=== PATIENT | male | born 1945 | race Caucasian/White ===

== ENCOUNTER 2025-05-17 12:48 | Outpatient (AMB) | payer MEDICARE, OTHER, SELFPAY ==
[2025-05-17 12:49] VITALS: BP 128/58; PULSE 49; O2SAT 96; BMI 26.8
--- NOTE | 2025-05-17 12:49 | A.OFFVIS_ITS ---
Vital Signs 3 05/17/25 12:49 Height 5 ft 5 in Weight 160 lb 14.999 oz BMI 26.8 BP 128/58 L Blood Pressure Location Rt brachial Position Sitting Pulse 49 L Pulse Source Pulse Oximeter Pulse Oximetry (%) 96 Oxygen Delivery Method Room Air Intake Visit Reasons: NEW Pt DMT2 & Multinodular Goider Intake Note: New patient present today for Type 2 Diabetes Mellitus and Multinodular Goiter: Last Diabetic eye exam: 02/2025 Last Podiatry Visit: 04/2025 Most Recent HgA1C: 6.6%, 05/17/2025 Random Glucose: 192 mg/dL, Today L Precision Instrument Maker Required: No Accompanied by: Significant Other Dona Allergies No Known Allergies Allergy (Verified 05/17/25 12:53) Medication List - Last Reconciled 05/17/25 by Brianna Bustamante MD albuterol sulfate 90 mcg/actuation 1 puff inhalation Q4H PRN aspirin 81 mg PO DAILY atorvastatin 40 mg PO DAILY blood sugar diagnostic (Accu-Chek Tara Plus test strips) As directed blood-glucose sensor (FreeStyle Opal 3 Plus Sensor device) As directed blood-glucose,aging box hand,cont (FreeStyle Opal 3 Palco) As directed carvedilol 12.5 mg PO BID fluticasone propionate 50 mcg/actuation 1 spray intranasal DAILY hydralazine 25 mg PO TID hydralazine 25 mg PO TID insulin glargine (Lantus Solostar U-100 Insulin) 26 units subcut insulin lispro (Humalog KwikPen (U-100) Insulin) subcutaneously 3 times a day; 80-120= 12 units 151-200=14 units 201- 250= 16 units 251-300= 18 units 301-350= 20 units isosorbide mononitrate ER 120 mg PO DAILY lancets (Accu-Chek Softclix Lancets) As directed torsemide 20 mg PO BID HPI Comments Details: 79-year-old male here today to establish care for type 2 diabetes mellitus and multinodular thyroid. Was previously following with the [facility], now establishing care with us. Was seeing Dr. Jose there who is retired , also due to insurance issues. Type 2 diabetes mellitus History of diabetes Was diagnosed in his 40s Prior therapy: metformin , switched to insulin in his 40s after CABG Current regimen: Lantus 26 units daily at night Humalog subcutaneously 3 times a day takes it 10 mins before meals 80-120= 12 units 151-200=14 units 201- 250= 16 units 251-300= 18 units 301-350= 20 units mostly requiring 12 to 14 units HAs freeZoonayle opal 3 but forgot to bring phone to visit Has accucheck meter , strips and lancets at home for back up Denies any symptoms of hyperglycemia including polyphagia, polyuria, polydipsia. Denies any hypoglycemic symptoms. 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 Multinodular goiter Ultrasound thyroid dated July 2024 showed a right lower pole 1.6 cm TR 4 solid hypoechoic with possible macrocalcification nodule which is new per chart review. Another right lower pole nodule abutting the isthmus measuring 1.4 cm in the largest dimension TR 3, also new, this is mixed cystic solid. Another mid to upper pole nodule abutting the isthmus measuring 1.4 cm TR 3 which is stable from previous ultrasound per report. In the left lobe left midpole 1.8 cm mixed cystic solid, hypoechoic, with macrocalcification TR 4 nodule and an inferior left isthmic nodule measuring 2.2 cm TR 4, mixed cystic solid, with a lobulated margin unchanged in size. Apparently he had biopsy in July 2019 of the isthmus and left lobe nodule which were benign. January 2024 she also had a biopsy of an isthmus nodule , per patient this was nondiagnostic No compressive symptoms. No recent TFTs. No family history of thyroid cancer. No personal history of head or neck radiation. Physical exam General: sitting comfortably in no acute distress HEENT: normocephalic/atraumatic, Neck: supple, Cardiac: normal heart sounds Pulm: normal breath sounds B/L, no added breath sounds Abd: not distended, no tenderness Extremities: no edema, no signs of myxedema Neuro: AAO x3, Speech: normal, no facial droop, moving all 4 extremities [facility] Medical History (Updated 05/17/25 @ 13:43 by Brianna Bustamante MD) Type 2 diabetes mellitus Asymptomatic coronary heart disease Edema Hyperthyroidism Thyroid nodule long term care social worker (current) use of insulin Pure hypercholesterolemia, unspecified Essential (primary) hypertension 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 Mother No problems noted. Social History Household Members: Spouse Alcohol intake: current Alcohol intake frequency: does not drink Patient Tobacco Use Status: Never used Tobacco Physical Exam Vital Signs: Last Vital Signs Pulse 49 L 05/17/25 12:49 BP 128/58 L 05/17/25 12:49 Pulse Ox 96 05/17/25 12:49 Oxygen Delivery Method Room Air 05/17/25 12:49 BMI result Body Mass Index 26.8 Results AMB Hemoglobin A1c 2 AMB Hemoglobin A1c 6.6 % Last Edit by JEF Richey on 05/17/25 13:10 Results Reviewed Results Reviewed: Laboratory Last Values Glucose (Clinic) 196 mg/dL (60-115) H 05/17/25 13:01 Hgb A1c (Clinic) 6.6 % (4.0-6.0) H 05/17/25 13:06 Assessment & Plan Assessment & Plan (1) Type 2 diabetes mellitus: Code(s): E11.9 - Type 2 diabetes mellitus without complications Category: Medical Qualifiers: Diabetes mellitus complication status: with circulatory complication D iabetes mellitus fci insulin use: with fci use Diabetes mellitus complication detail: with other circulatory complications Qualified Code(s): E 11.59 - Type 2 diabetes mellitus with other circulatory complications; Z79.4 - long term care social worker (current) use of insulin Plan: 79-year-old male coming in today for initial evaluation of type 2 diabetes mellitus with complications of retinopathy, CAD. He was diagnosed with diabetes in his 40s, establishing care with us today. Currently on long-term insulin with a basal bolus regimen. He has tried metformin in the past, looks like it was just discontinued due to poor control, he has never been on any GLP 1 agonist or SGLT2 inhibitors. A1c POC today 05/17/2025 at 6.6% which is within goal A1c of less than 7%. He is wearing a Gamisfaction Opal 3, however he forgot to bring his phone today showed no data could be downloaded. Reports blood sugars are mostly in the 100s and max 200s, however he also has a few hypoglycemic episodes here and there. No severe hypoglycemic event. Hypoglycemia education done. We also reviewed complications of hyperglycemia. Plan: -continue current dose of Lantus 26 units daily -continue current HumalogHumalog subcutaneously 3 times a day , take it 15 mins before meals 80-120= 12 units 151-200=14 units 201- 250= 16 units 251-300= 18 units 301-350= 20 units -upgrade to freestyle Opal 3+, clinical staff educator referral placed -foot exam deferred today , he had his feet last checked in April 2025 by PCP -ordered labs -has a retinopathy, up-to-date with eye visit, last seen February 2025 (2) Nontoxic multinodular goiter: Code(s): E04.2 - Nontoxic multinodular goiter Category: Medical Plan: 79-year-old male with no family history of thyroid cancer, with no personal history of head or neck radiation, who also has History of multinodular goiter Ultrasound thyroid dated July 2024 showed a right lower pole 1.6 cm TR 4 solid hypoechoic with possible macrocalcification nodule which is new per chart review. Another right lower pole nodule abutting the isthmus measuring 1.4 cm in the largest dimension TR 3, also new, this is mixed cystic solid. Another mid to upper pole nodule abutting the isthmus measuring 1.4 cm TR 3 which is stable from previous ultrasound per report. In the left lobe left midpole 1.8 cm mixed cystic solid, hypoechoic, with macrocalcification TR 4 nodule and an inferior left isthmic nodule measuring 2.2 cm TR 4, mixed cystic solid, with a lobulated margin unchanged in size. Apparently he had biopsy in July 2019 of the isthmus and left lobe nodule which were benign. January 2024 she also had a biopsy of an isthmus nodule , per patient this was nondiagnostic No compressive symptoms. No recent TFTs. Plan: -ordered TSH plus free T4 -ordered ultrasound of the thyroid -follow up in 5-6 weeks to discuss results Plan I spent 60 minutes in reviewing the record, seeing the patient and documenting in the medical record. Orders: Orders 2 US thyroid Today E04.2 - Nontoxic multinodular goiter Free T4 (Free Thyroxine) Today E04.2 - Nontoxic multinodular goiter AMB Hemoglobin A1c Today Z86.39 - Personal history of other endocrine, nutritional and metabolic disease Comprehensive Met. Panel Today E11.59 - Type 2 diabetes mellitus with other circulatory complications, Z79.4 - penitentiary (current) use of insulin C Peptide Today E11.59 - Type 2 diabetes mellitus with other circulatory complications, Z79.4 - long term care social worker (current) use of insulin Lipid Panel Today E11.59 - Type 2 diabetes mellitus with other circulatory complications, Z79.4 - long term care social worker (current) use of insulin Microalbumin, Random (w Creat) Today E11.59 - Type 2 diabetes mellitus with other circulatory complications, Z79.4 - long term care social worker (current) use of insulin Thyroid Stimulating Hormone Today E04.2 - Nontoxic multinodular goiter Referrals 2 Diabetes Education Referral E11.59 - Type 2 diabetes mellitus with other circulatory complications, Z79.4 - penitentiary (current) use of insulin Medications: New 2 insulin glargine (Lantus Solostar U-100 Insulin) 26 units (0.26 mL) subcut BEDTIME 30 mL 2RF E11.59 - Type 2 diabetes mellitus with other circulatory complications, Z79.4 - penitentiary (current) use of insulin insulin lispro (Humalog KwikPen (U-100) Insulin) subcutaneously 3 times a day before meals ; 80-120= 12 units 151-200=14 units 201- 250= 16 units 251-300= 18 units 301-350= 20 units upto max 60 units per day 30 mL 2RF E11.59 - Type 2 diabetes mellitus with other circulatory complications, Z79.4 - penitentiary (current) use of insulin pen needle, diabetic (1st Tier Unifine Pentips) As directed to inject insulin 4 times a day 100 ea 4RF E11.59 - Type 2 diabetes mellitus with other circulatory complications, Z79.4 - long term care social worker (current) use of insulin blood-glucose sensor (FreeStyle Opal 3 Plus Sensor device) As directed every 15 days 6 ea 3RF E11.59 - Type 2 diabetes mellitus with other circulatory complications, Z79.4 - long term care social worker (current) use of insulin Patient Instructions: DO fasting blood work and urine test Continue current dose of insulin as mentioned below Lantus 26 units daily at night Humalog subcutaneously 3 times a day , take it 15 mins before meals 80-120= 12 units 151-200=14 units 201- 250= 16 units 251-300= 18 units 301-350= 20 units Rule of 15 Treatment for Hypoglycemia (Low blood sugar) If your blood glucose is low (70 and below)*, follow the steps below to treat: Eat or drink something from the list below equal to 15 grams of carbohydrate (carb). Rest for 15 minutes Re-check your blood glucose. If it is still low, (below 70), repeat step 1 above. ? If your next meal is more than an hour away, you will need to eat one carbohydrate choice as a snack to keep your blood glucose from going low again. ?If you can't figure out why you have low blood glucose, call your healthcare provider, as your medicine may need to be adjusted. ?Always carry something with you to treat an insulin reaction. Use food from the list below. ? Foods equal to One Carbohydrate Choice (15 grams of carbohydrate): 3 Glucose ?tablets or 4 Dextrose tablets 4 ounces of fruit juice 5-6 ounces (about 1/2 can) of regular soda such as Coke or Pepsi ? 7-8 gummy or regular Life Savers ? 1 Tbsp. of sugar or jelly NOTE: If your blood sugar is less than 50, double the portion above for a total of 30 gm. ?Carbohydrate. ? Follow meal plan of 45-60 g of consistent carbohydrates at 3 meals each day and 15 g of carbohydrate at 1-2 snacks each day. Always verify a low blood sugar with a fingerstick Do thyroid ultrasound, someone will call you to schedule this Coding Level of Care Code New Pt Level 5 (75521) Diagnoses Type 2 diabetes mellitus with other circulatory complication, with long-term current use of insulin E11.59; Z79.4 Diabetes mellitus complication status: with circulatory complication Diabetes mellitus fci insulin use: with fci use Diabetes mellitus complication detail: with other circulatory complications Nontoxic multinodular goiter E04.2 Time Spent (min) 60
[2025-05-17 13:05] LABS: Glucose, Whole Blood 196 mg/dL (60-115)
--- OUTSIDE RECORDS SUMMARY | 2025-05-17 13:20 | XMS_ITS | Patient Health Record ---
Author Organization [facility] Address [address] [place] [address] Care Team Providers Care Resident Physician In Radiology Name Role Phone Ashely Parada Primary Care Provider Angela Delacruz Unavailable [phone] Allergies No Known Allergies Results Component Value Reference Range Notes HEMOGLOBIN A1C (GLYCOHEMOGLO BIN) Reviewed date:02/03/2025 10:40:35 AM Interpretation: Performing Lab: Notes/Report: HEMOGLOBIN A1C % (HH) 6.2 Reason For Referral No Information Medications Medication SIG (Take, Route, Frequency, Duration) Notes Start Date End Date Status Carvedilol 12.5 MG 1 tablet with food O rally Twice a day Active Lantus SoloStar Acti ve HumaLOG Active Tamsulosin HCl 0.4 MG 1 capsule Orally O nce a day Active Torsemide 20 MG 1 tablet Orally four times a day Active Extra Depth Orthopedic Shoes (1 Pair) with Customized Heat Molded Multidensity Innersoles (3 Pair) as directed Dx: NIDDM/Polyneuropathy (E11.42), Hammertoe Foot Deformity (M20.41,M20.42), Preulcerative Skin Lesion(s) (L85.1 02/03/2025 Active Atorvastatin Calcium 40 MG 1 tablet Orally Once a day Active Isosorbide Mononitrate Active Lisinopril 40 MG 1 tablet Orally Once a day Active hydrALAZINE HCl 25 MG 1 tablet with food Orally three times a day Active Potassium Chloride A ctive Immunizations Vaccine Route Administration Date Status Comme nts Influenza Unknown 07/13/2024 Administered Social History Tobacco Use: Social History Observation Description Date Details (start date - stop date) Never Smoker NA - NA Tobacco use other than smoking: Question Answer Notes Are you an other tobacco user? No Tobacco Control (Standard) Question Answer Notes Tobacco use: Nonsmoker Additional Findings: Tobacco non-user Current no nsmoker AUDIT-C (Standard) Question Answer Notes Did you have a drink contain ing alcohol in the past year? Yes How often did you have a dri nk containing alcohol in the past year? Declined to specify (0 point) How many drinks did you have on a typical day when you were drinking in the past year? Declined to specify (0 point) How often did you have six o r more drinks on one occasion in the past year? Declined to specify (0 point) Points 0 Interpretation Negative Problems Problem Type SNOMED Code ICD Code Onset Dates Problem Status W/U Status Risk Notes Problem Acquired hammer toe of right foot (932953185489 9105) Other hammer toe(s) (acquired), right foot (M20.41) Active confirmed Problem Acquired hammer toe of left foot (266172248035 9103) Other hammer toe(s) (acquired), left foot (M20.42) Active confirmed Problem Type 2 diabetes mellitus with diabetic polyneuropathy (E11.42) Active confirmed Vital Signs Blood pressure diastolic 65 mm Hg 05/05/2025 Height 5 ft 5inch in 05/05/2025 Blood pressure systolic 128 mm Hg 05/05/2025 Weight 160 lbs 05/05/2025 BMI 26.62 kg/m2 05/05/2025 Procedures Procedure Date Ordered Date Performed Result Body Sit e 45850-AJNNMZC NAIL, 6 OR MORE 02/03/2025 N/A 62201-EXMX SKIN LESIONS, 2 TO 4 02/03/2025 N/A Encounters Encounter Location Date Provider Diagnosis [facility] [address] [address] 02/03/2025 Angela Guy Type 2 diabetes mellitus with diabetic polyneuropathy E11.42 ; Tinea unguium B35.1 ; Other hammer toe(s) (acquired), right foot M20.41 and Other hammer toe(s) (acquired), left foot M20.42 [facility] [address] [address] 05/05/2025 Angela Guy Type 2 diabetes mellitus with diabetic polyneuropathy E11.42 and Tinea unguium B35.1 Assessments Encounter Date Diagnosis (ICD Code) Assessment Notes Treatment Notes Treatment Clinical Notes Section Notes 02/03/2025 Type 2 diabetes mellitus with diabetic polyneuropathy (ICD-10 - E11.42) 02/03/2025 Tinea unguium (ICD-10 - B35.1) 05/05/2025 Type 2 diabetes mellitus with diabetic polyneuropathy (ICD-10 - E11.42) 05/05/2025 Tinea unguium (ICD-10 - B35.1) 02/03/2025 Other hammer toe(s) (acquired), right foot (ICD-10 - M20.41) Patient Educated with: DIABETIC FOOT CARE INSTRUCTIONS. pdf (DIABETIC FOOT CARE INSTRUCTIONS. pdf) 02/03/2025 Other hammer toe(s) (acquired), left foot (ICD-10 - M20.42) Plan Of Treatment Pending Test Test Name Order Date 40153-BQROICY NAIL, 6 OR MORE 02/03/2025 80941-KRFO SKIN LESIONS, 2 TO 4 02/04/20 Next Appt Details Provider Name:Angela melo, 08/04/2025 03:15:00 PM, [address] [place], [address], Insurance Providers Payer Name Payer Address Payer Phone Subscriber Number Group Number Insured Name Patient Relationship to Insured Coverage Start Date Coverage End Date [employer] Medicare [id number] [address] [address] [place] [address] [id number] Bautista Delarosa Self - patient is the insured Medical (General) History Medical History History ICD Code Arthritis asthma Back,Hip,and Knee pain Cancer Cataracts covid-19 type II diabetes Heart disease High Blood Pressure Stomach ulcer Vascular phlebitis (clots) Measles Chicken pox Replacement Heart Valves Surgical History Surgery Date(Month/Year) triple bypass 2021
--- OUTSIDE RECORDS SUMMARY | 2025-05-17 13:20 | XMS_ITS | Clinical Summary ---
Author Organization [address] [facility] Address [address] [place] [address] Care Team Providers Care Health Promotion Officer Name Role Phone Alberto Quach MD Primary Care Provider [phone] Allergies No known active allergies Medications amlodipine-ator vastatin (CADUET) 5-40 mg per tablet Take 1 tablet by mouth daily.. Active aspirin 81 MG EC tablet Take 81 mg by mouth daily.. Active fexofenadine (MEGHAN) 180 MG tablet Take 180 mg by mouth daily.. Active insulin glargine (LANTUS) 100 unit/mL vial Inject under the skin daily.. Active insulin lispro (HUMALOG) 100 unit/mL vial Inject under the skin 3 (three) times daily before meals.. Consult your sliding scale for dosing. Active lisinopril-hydr ochlorothiazide (PRINZIDE,ZESTO RETIC) 20-12.5 mg per tablet Take 1 tablet by mouth daily.. Active Active Problems No known active problems Social History Tobacco Use Types Packs/Day Years Used Date Smoking Tobacco: Former Cigarettes 1 30 1 973 - 2002 Smokeless Tobacco: Never Alcohol Use Standard Drinks/Week Comments Yes 4 (1 standard drink = 0.6 oz pur e alcohol) per day Sex and Gender Information Value Date Recorded Sex Assigned at Not on file Legal Sex Male 6:22 AM EDT Gender Identity Not on file Sexual Orientation Not on file Last Filed Vital Signs Vital Sign Reading Time Taken Comments Blood Pressure 163/74 07/09/2018 8:37 AM EDT Pulse 63 07/09/2018 8:37 AM EDT Temperature 36.9 C (98.5 F) 07/09/2018 8:02 AM EDT Respiratory Rate 16 07/09/2018 8:37 AM EDT Oxygen Saturation 93% 07/09/2018 8:37 AM EDT Inhaled Oxygen Concentration - - Weight 74.8 kg (165 lb) 07/09/2018 7:41 AM EDT Height 165.1 cm (5' 5 ) 07/09/2018 7:41 AM EDT Body Mass Index 27.46 07/09/2018 7:41 AM EDT Plan of Treatment Health Maintenance Due Date Last Done Comments HIV screening 1956 Tetanus adult (Td q 10,TDAP once) 1963 Lipid disorder screening 1983 Diabetes screening 1988 Pneumococcal Vaccine (50+ ye ars) (1 of 1 - PCV) 1993 Shingles vaccine (Shingrix) (1 of 2 - Shingrix (RZV) 2 Dose Standard Series) 1993 RSV Immunization (1 - 1-dose 75+ series) 2018 Covid-19 vaccine series (1 - 2023- season) 2024 Influenza vaccine 06/13/2025 Colon cancer screening, Colonoscopy Discontinued Meningococcal Vaccine Aged Out No jos eg jayleen eligible based on patient's age to complete this topic Medical Devices Implanted Type Area Patient Financial Services Specialist Device Identifier Shelf Expiration Date Model / Serial / Lot Lense [id number] 20.0 - [id number] Implanted:Qty: 1 on 07/09/2018 by Sridhar Phillips MD at [address] Other-imp lant Left: Eye [employer] ([employer]) 11/12/2022 [id number].200 / [id number] / Insurance MEDICARE Member Subscriber Plan / Payer (Ef fective 2008-Present) Name:Bautista Aguilera Member ID:[id number] Relation to Subscriber:Self Name:Bautista Aguilera Subscriber ID:[id number] Payer ID:[id number] Group ID:Not on file Type:Not on file Address: [facility] [address] [id number] [facility] MEDICARE [facility] MEDICARE [facility] Care Teams Health Promotion Officer Relationship Specialty Start Date End Date Alberto Quach MD PCP - General Internal Medicine 07/09/18
--- OUTSIDE RECORDS SUMMARY | 2025-05-17 13:20 | XMS_ITS ---
Author Name [facility] Organization Unknown History of Medication Use Medication Directions Dispensed Refills Start Date End Date Stat us pen needle, diabetic (BD Ultra-Fine Short Pen Needle) 31 gauge x 5/16 needle 1 each by in vitro route 4 (four) times a day. 04/11/2025 active isosorbide mononitrate (IMDUR) 120 mg 24 hr tablet TAKE 1 TABLET BY MOUTH DAILY 03/14/2025 active carvediloL (COREG) 12.5 mg tablet TAKE 1 TABLET BY MOUTH TWICE DAILY WITH MEALS 12/23/2024 active lisinopril (PRINIVIL,ZESTRIL) 40 mg tablet TAKE 1 TABLET BY MOUTH DAILY 10/11/2024 active hydrALAZINE (APRESOLINE) 25 mg tablet TAKE 1 TABLET BY MOUTH THREE TIMES A DAY 09/24/2024 active torsemide (DEMADEX) 20 mg tablet Take 2 tablets (40 mg total) by mouth 2 (two) times a day. 09/21/2024 active potassium chloride 20 mEq tablet extended release Take 20 mEq by mouth. 04/14/2023 active fluticasone HFA (Flovent HFA) 220 mcg/actuation inhaler Inhale 2 puffs by mouth 2 (two) times a day. 12/12/2020 active aspirin 81 mg EC tablet Take 1 tablet (81 mg total) by mouth 1 (one) time each day. active atorvastatin (LIPITOR) 40 mg tablet Take 1 tablet (40 mg total) by mouth at bedtime. active cetirizine (ZyrTEC) 10 mg tablet Take 1 tablet (10 mg total) by mouth 1 (one) time each day. active insulin aspart (NovoLOG FlexPen) 100 unit/mL (3 mL) injection pen INJECT 20 TO 25 UNITS UNDER THE SKIN THREE TIMES DAILY WITH MEALS active insulin glargine (LANTUS) 100 unit/mL injection Inject 30 Units under the skin at bedtime. active insulin lispro (HumaLOG) 100 UNIT/ML patient supplied pump Inject under the skin 3 (three) times a day. active pen needle, diabetic (BD Ultra-Fine Short Pen Needle) 31 gauge x 5/16 needle USE UP TO FIVE TIMES DAILY DIRECTED active tamsulosin (FLOMAX) 0.4 mg 24 hr capsule Take 1 capsule (0.4 mg total) by mouth 1 (one) time each day with breakfast. Capsules should be taken 30 minutes following the same meal each day. active Allergies Allergen Reaction Severity Comment Documented Date Source Statu s PLUM RASH 03/29/2025 [facility] active FRUIT EXTRACTS 07/25/2021 [facility] act [place] APPLE EXTRACT HIVES [facility] HAIDER RASH [facility] PEACH RASH [facility] Problems Problem Status Onset Date Problem Type Date of Resoluti on Source Primary hypertension active 2025-03-29 ProblemAct [facility] H/O coronary artery bypass surgery active 2025-03-29 ProblemAct [facility] Congestive heart failure ([facility] V24, [facility] V28) active 2025-03-29 ProblemAct [facility] Benign prostatic hyperplasia with lower urinary tract symptoms active 2025-03-29 ProblemAct [facility] Tongue discoloration active 2025-04-13 ProblemAct [facility] Type 2 diabetes mellitus without complication, with long-term current use of insulin ([facility] V24, [facility] V28) active 2025-03-29 ProblemAct [facility] Hyperlipidemia active 2025-03-29 ProblemAct [facility] Mild intermittent asthma without complication active 2025-03-29 ProblemAct [facility] Encounter to establish care active 2025-03-29 ProblemAct [facility] Serum sodium elevated active 2025-04-13 ProblemAct [facility] Immunizations Vaccine Date Source Lot Number Status Influenza trivalent, 0.5mL ( Fluzone High-dose) 65yo and older 08/10/2024 [facility] [id number] comple pan Influenza trivalent, 0.5mL ( Fluzone High-dose) 65yo and older 09/18/2023 [facility] [id number] comple pan Encounters Encounter Type Encounter Reason Primary Diagnosis Location Date Ambulatory Annual Exam Encounter for ge neral adult medical examination without abnormal findings [facility] 04/13/2025 Ambulatory new patient Presence of aortocoronary bypass graft [facility] 03/29/2025 Ambulatory [facility]2025 Care Team Organization Name Specialty Phone Email Start Date End Da te [facility] 03/30/2025 [facility] Primary Care 03/29/2025 [facility] 01/24/2025 04/23/2025
--- OUTSIDE RECORDS SUMMARY | 2025-05-17 13:20 | XMS_ITS | Continuity of Care Document ---
Author Organization [facility] [address] [place] [address] Phone [phone] Care Team Providers Care Tax Auditor Name Role Phone Alberto Quach M.D. Care Team Information Recei shereen [phone] Problems Active Problems Provider Date Coronary artery bypass graft Domenico Esquivel Onset: 07/30/2022 Subclinical hyperthyroidism Jamilah Esquivel Onset: 07/30/2022 Type 2 diabetes mellitus Rudolph Jose M.D. O nset: 07/30/2022 Hypercholesterolemia Rudolph Jose M.D. Onset : 07/30/2022 Essential hypertension Rudolph Jose M.D. Ons et: 07/30/2022 Asthma Rudolph Jose M.D. Onset: Thyroid nodule Rudolph Jose M.D. Onset: Edema Rudolph Jose M.D. Onset: Asymptomatic coronary heart disease Rudolph rizvi M.D. Onset: 04/04/2023 Insulin treated type 2 diabetes mellitus Rudolph muro M.D. Onset: 04/04/2023 Social History Type Date Description Comments Sex Male Sex Unknown Lives With Spouse ETOH Use Consumes 7 glass es of wine per week Lunch and dinner Tobacco Use Start: Unknown End: Unknown Patient is a former smoker Quit in 2007 Allergies and adverse reactions Description No Known Drug Allergies Medications Active Medications SIG Qnty Indications Order ing Provider Date Freestyle Opal 3 Plus/Sensor/Glucose Monitoring SystemMisc 1 sensor to skin every fifteen days as directed 6units E11.9 Barbi Reina M.D. 01/03/2025 Freestyle Opal 3/[place]/Glucose Monitoring [id number] Device use with sensors to check blood sugar dx:e11.9 1units Barbi Reina M.D. 01/03/2025 Hydralazine LDE59bt Tablets take 1 tablet three times daily Barbi Reina M.D. 07/05/[address] 1 by mouth every day Rudolph Jose M.D. 03/02/2024 Isosorbide Mononitrate ER60mg Tablets ER 24HR 1 by mouth every day Rudolph Jose M.D. 03/02/2024 Lifestylecomfort Compression Stockings/Medium/10-20MM HGMisc on am and off at bedtime 2units E11.9 Rudolph Jose M.D. 03/02/2024 R60.9 Gtmycymabs30iv Tablets 1 by mouth every day Rudolph Jose M.D. 04/04/2023 Lantus Wzasrtuq085Jasa/ML Solution Pen-Inject 40 units at bedtime 60ml Rudolph gomes M.D. 12/05/2022 Humalog Exwrmsj018Kvbk/ML Solution Pen-Inject inject 6-15 units subcutaneously before meals 45ml E11Sharmaine Reina M.D. 12/05/2022 Z79.4 BD Pen Needle/Short/Ultra-Fi ne/31G X 8mm31G X 8 mm Misc Use To Inject Insulin Up To Five Times Daily Alberto Quach M.D. Contour Next Blood Glucose TestStrips Us e To Test Blood Sugar Three Times Daily Alberto Quach M.D. Atorvastatin Ctazdqq56bt Tablets Take 1 Tablet By Mouth Every Day Alberto Quach M.D. Albuterol Sulfate TDL944(90B ase) mcg/Act Aerosol Inhale 2 Puffs By Mouth Twice Daily Alberto Quach M.D. Fluticasone Pzdrbfxbax98yds/ Act Suspension Shake Liquid And Use 1 [place] In Each Nostril Twice Daily Alberto Quach M.D. Nzqlsfvrdl06.5mg Tablets Take 1 Tablet B y Mouth Twice Daily With Meals Unknown Vital Signs Date Vital Result Comment 11/04/2024 2:48pm BP Systolic 140 mmHg BP Diastolic 60 mmHg Heart Rate 74 /min Height 65 inches 5'5 Weight 163.00 lb BMI (Body Mass Index) 27.1 kg/m2 Results Test Acquired Date Facility Test Result H/L Range N ote Glucose Fingerstick 11/04/2024 Inhouse Glucose Fingerstick 80 Hemoglobin A1c 11/04/2024 Inhouse Hemoglobin A1c 6.7% Glucose Fingerstick 07/05/2024 Inhouse Glucose Fingerstick 129 Hemoglobin A1c 07/05/2024 Inhouse Hemoglobin A1c 6.5% Glucose Fingerstick 03/02/2024 Inhouse Glucose Fingerstick 94 Hemoglobin A1c 03/02/2024 Inhouse Hemoglobin A1c 6.7% Glucose Fingerstick 12/02/2023 Inhouse Glucose Fingerstick 85 Hemoglobin A1c 12/02/2023 Inhouse Hemoglobin A1c 6.7% Glucose Fingerstick 07/28/2023 Inhouse Glucose Fingerstick 125 Hemoglobin A1c 07/28/2023 Inhouse Hemoglobin A1c 6.8% Glucose Fingerstick 04/04/2023 Inhouse Glucose Fingerstick 158 Hemoglobin A1c 04/04/2023 Inhouse Hemoglobin A1c 6.2% Glucose Fingerstick 12/05/2022 Inhouse Glucose Fingerstick 121 Glucose Fingerstick 07/30/2022 Inhouse Glucose Fingerstick 181 Hemoglobin A1c 07/30/2022 Inhouse Hemoglobin A1c 6.8% Procedures Date Code Description Status 11/04/2024 45404 Glucose Monitoring Interpeta tion And Report Completed 07/05/2024 17219 Glucose Monitoring Interpeta tion And Report Completed 12/03/2022 NSHOWOFF No Show Office Visit Complet ed Medical Devices Description No Information Available Encounters Type Date Location Provider Dx Diagnosis Office Visit 11/04/2024 2:15p Main Office KADEN Forde E11.9 Type 2 diabet es mellitus without complications 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 I25.89 Other forms of chron ic ischemic heart disease I10 Essential (primary) hypertension E78.00 Pure hypercholestero lemia, unspecified Assessments Date Code Description Provider 11/04/2024 E11.9 Type 2 diabetes mellitus wit hout complications KADEN Forde 11/04/2024 Z79.4 nursing home (current) use of i nsulin KADEN Forde 11/04/2024 E04.2 Nontoxic multinodular goiter KADEN Forde 11/04/2024 I25.89 Asymptomatic coronary heart disease KADEN Forde 11/04/2024 I10 Essential hypertension KADEN Oropeza 11/04/2024 E78.00 Hypercholesterolemia KADEN Forde Plan of Treatment No Information Available Functional Status Description No Information Available Mental Status Description No Information Available Referrals Description No Information Available
--- OUTSIDE RECORDS SUMMARY | 2025-05-17 13:20 | XMS_ITS | Clinical Summary ---
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 360 tablet 1 4 Active lisinopril (PRINIVIL,ZESTRI L) 40 mg tablet TAKE 1 TABLET BY MOUTH DAILY 90 tablet 3 4 Active isosorbide mononitrate (IMDUR) 120 mg 24 hr tablet TAKE 1 TABLET BY MOUTH DAILY 90 tablet 3 5 Active carvediloL (COREG) 12.5 mg tablet TAKE 1 TABLET BY MOUTH TWICE DAILY WITH MEALS 200 tablet 1 5 Active fluticasone HFA (Flovent HFA) 220 mcg/actuation inhaler Inhale 2 puffs by mouth 2 (two) times a day. 1 Active insulin lispro (HumaLOG) 100 UNIT/ML patient supplied pump Inject under the skin 3 (three) times a day. Active potassium chloride 20 mEq tablet extended release Take 20 mEq by mouth. 3 Active atorvastatin (LIPITOR) 40 mg tablet Take 1 tablet (40 mg total) by mouth at bedtime. Active aspirin 81 mg EC tablet Take 1 tablet (81 mg total) by mouth 1 (one) time each day. Active tamsulosin (FLOMAX) 0.4 mg 24 hr capsule Take 1 capsule (0.4 mg total) by mouth 1 (one) time each day with breakfast. Capsules should be taken 30 minutes following the same meal each day. Active cetirizine (ZyrTEC) 10 mg tablet Take 1 tablet (10 mg total) by mouth 1 (one) time each day. Active insulin glargine (LANTUS) 100 unit/mL injection Inject 30 Units under the skin at bedtime. Active pen needle, diabetic (BD Ultra-Fine Short Pen Needle) 31 gauge x 5/16 needle 1 each by in vitro route 4 (four) times a day. 100 each 5 5 Active FreeStyle Opal 3 Plus Sensor device APPLY 1 SENSOR TO SKIN EVERY 15 DAYS DIRECTED 5 Active Hospital, Clinic, or Other Facility Administered Medication Ordered Dose Route Frequency Start Date End Date Status perflutren lipid microsphere (DEFINITY) 1.3 mL in sodium chloride 0.9% 8.7 mL injection 10 mL IV Once in imaging 05/12/2025 05/12/2025 End ed Active Problems Problem Noted Date Diagnosed Date Medicare annual wellness visit, subsequent 04/13 Assessment & Plan (04/13/2025 12:16 PM EDT): - Blood pressure readings concerning, though well-controlled during last cardiology visit with RN - Increase water intake to at least 50 ounces per day, limit in fluids given CHF - Adjust diuretic medication if sodium levels continue to rise - Reduce alcohol consumption due to potential impact on blood pressure, cardiac health, diabetes management, and risk of falls - Consider establishing advanced directives - See eye doctor yearly due to diabetes - Visit dentist yearly - Recommend Prevnar-20 vaccine to complete pneumonia vaccine series - Recommend shingles vaccine (two doses) - Suggest RSV vaccine (single dose) Serum sodium elevated 04/13/2025 Assessment & Plan (04/13/2025 12:13 PM EDT): -Slight elevation in sodium -Advised to increase oral hydration and decrease alcohol intake Tongue discoloration 04/13/2025 Assessment & Plan (04/13/2025 12:15 PM EDT): - Darkening of tongue could be related to oral hygiene or caffeine intake. Patient nor know how long it has been present. -Differentials include pseudo-black hairy tongue vs black hairy tongue - Start washing tongue regularly -Advised to follow-up with dentist Encounter to establish care 03/29/2025 Assessment & Plan (03/29/2025 3:05 PM EDT): Patient is a 79 y.o. male with pmhx CABG, HTN, HLD, CHF, former smoker, T2DM who presents to establish care. Vital signs notable for elevated blood pressure. Reviewed medical history and medications with patient. Annual labs ordered Primary hypertension 03/29/2025 Assessment & Plan (04/19/2025 11:18 AM EDT): Acceptable during today's exam with a reading of 120/54. I am not making any changes to his medications and he will continue on his current dose of carvedilol, hydralazine, lisinopril and torsemide. Educated on the importance of diet lifestyle to help further assist in reducing blood pressure. The patient was encouraged to follow low-salt low-fat diet, make purposeful strides towards weight loss, and engage in routine aerobic exercise as tolerated. Assessment & Plan (04/13/2025 12:11 PM EDT): - Currently on carvedilol 25 mg twice a day, hydralazine 25 mg three times a day, and lisinopril 40 mg once a day. He took morning dose of medications, due for hydralazine dose around noon. - Blood pressure is elevated today in office, likely because he is due for his noon dose of hydralazine. - Measure blood pressure 30 minutes to an hour after morning dose of blood pressure medications - Has cardiology follow-up next, advised to bring in blood pressure logs. Assessment & Plan (03/29/2025 3:07 PM EDT): - Blood pressure currently uncontrolled - More frequent home monitoring needed - Schedule appointment with construction job titles for further evaluation and management Type 2 diabetes mellitus wit hout complication, with long-term current use of insulin ([facility] V24, [facility] V28) 03/29/2025 Assessment & Plan (04/13/2025 12:08 PM EDT): - Diabetes well-controlled with A1c of 7.1, at goal for age and cardiac conditions - No changes to current diabetes management plan necessary Assessment & Plan (03/29/2025 4:20 PM EDT): - Blood glucose levels well-regulated on current regimen -Plan is to establish care with a new shed hand - Contact office if experiencing hypoglycemic episodes - Comprehensive blood work panel ordered (A1c, cholesterol levels, kidney function, liver function tests) Mild intermittent asthma without complication Assessment & Plan (03/29/2025 3:09 PM EDT): - Uses Flovent as needed for asthma management Benign prostatic hyperplasia with lower urinary tract symptoms 03/29/2025 Assessment & Plan (03/29/2025 3:10 PM EDT): - Currently on tamsulosin 0.4 mg for urinary symptoms - is unsure if PSA level was checked in the past H/O coronary artery bypass surgery 03/29/2025 Assessment & Plan (04/19/2025 11:18 AM EDT): Patient with extensive history of coronary disease and recent cardiac catheterization without the ability for PCI. He does endorse shortness of breath and fatigue. He is on isosorbide and carvedilol. He has not had to take any sublingual nitroglycerin. We will update echocardiogram to further evaluate for any new wall motion abnormalities, reduction in LVEF or valvular abnormalities. Patient states his chest discomfort is stable and has not worsened. His main complaint is shortness of breath and fatigue. Instructed to call 911 or go to the emergency room should the patient begin to experience chest pain or pressure lasting greater than 10 minutes does not resolve with rest. The patient and his do understand the significant of his coronary disease and that PCI had not been amenable during his last cardiac catheterization. Could discuss the potential of introducing Ranexa during his next office visit should his symptoms progress or worsen. Orders: Transthoracic echocardiogram (TTE) complete with PRN contrast, bubble, strain, and 3D order panel; Future perflutren lipid microsphere (DEFINITY) 1.3 mL in sodium chloride 0.9% 8.7 mL injection Assessment & Plan (03/29/2025 3:11 PM EDT): -Follows with cardiology, s/p CABG -Per cardio, pt was supposed to follow-up in 3 months. will call to schedule appt. Congestive heart failure ([facility] V24, [facility] V 28) 03/29/2025 Assessment & Plan (04/19/2025 11:18 AM EDT): Patient appears to be euvolemic upon exam today. He will continue on cardioprotective medical therapy of carvedilol, lisinopril and torsemide. He has been instructed to be mindful of his dietary sodium intake. Encouraged to continue to follow a low- sodium diet and perform daily weights. Patient will reach out to our office with a weight gain of 2 pounds in 1 day or 5 pounds in 5 days accompanied by worsening peripheral edema, shortness of breath or abdominal distention. In light of his worsening breathlessness and fatigue we will update echocardiogram to further evaluate any reduction in his LVEF or for any valvular abnormalities. Orders: ECG 12 lead Transthoracic echocardiogram (TTE) complete with PRN contrast, bubble, strain, and 3D order panel; Future perflutren lipid microsphere (DEFINITY) 1.3 mL in sodium chloride 0.9% 8.7 mL injection Assessment & Plan (03/29/2025 3:12 PM EDT): -On torsemide, f/u CMP Hyperlipidemia 03/29/2025 Assessment & Plan (03/29/2025 4:21 PM EDT): -Follow-up lipid panel, continue with current regimen Encounters Date Type Department Care Team Description 05/12/2025 12:30 PM EDT Ancillary Procedure [facility] - [address] [place] [address] Congestive heart failure, unspecified HF chronicity, unspecified heart failure type (CMS/HCC V24, CMS/HCC V28); H/O coronary artery bypass surgery 04/19/2025 10:10 AM EDT Office Visit [facility] - [address] [place] [address] Madina Guajardo NP Congestive heart failure, unspecified HF chronicity, unspecified heart failure type (CMS/HCC V24, CMS/HCC V28) (Primary Dx); H/O coronary artery bypass surgery; Primary hypertension 04/13/2025 11:00 AM EDT Office Visit [facility] - [address] [place] [address] Ashely Parada MD Medicare annual wellness visit, subsequent (Primary Dx); Type 2 diabetes mellitus without complication, with long-term current use of insulin (CMS/HCC V24, CMS/[facility] V28); Primary hypertension; Serum sodium elevated; Tongue discoloration 03/29/2025 2:30 PM EDT Office Visit [facility] - [address] [place] [address] Ashely Parada MD Encounter to establish care (Primary Dx); H/O coronary artery bypass surgery; Type 2 diabetes mellitus without complication, with long-term current use of insulin (CMS/HCC V24, CMS/HCC V28); Hyperlipidemia, unspecified hyperlipidemia type; Former smoker; Congestive heart failure, unspecified HF chronicity, unspecified heart failure type (CMS/HCC V24, CMS/HCC V28); Primary hypertension; Mild intermittent asthma without complication; Benign prostatic hyperplasia with lower urinary tract symptoms, symptom details unspecified from Last 3 Months Immunizations Name Administration Dates Next Due Influenza trivalent, 0.5mL ( Fluzone High-dose) 65yo and older 08/10/2024,09/18/2023 Surgical History Surgery Date Site/Laterality Comments CATARACT EXTRACTION Right PROCEDURE: HISTORICAL CATARACT REMOVAL OTHER SURGICAL HISTORY TRIPLE BIPASS Medical History Medical History Date Comments Asthma DX:Asthma Type 2 diabetes mellitus wit hout complication (CMS/HCC V24, CMS/HCC V28) DX:Type 2 diabetes mellitus without complication (HCC) Hyperlipidemia 05/18/2018 DX:Hyperlipidemi a Hypertension 05/18/2018 DX:Hypertension 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:Capillar y hemangioma; COMMENT: (L) upper abdomen excision Skin lesion, superficial DX:Skin lesion, superficial; COMMENT: Left axilla Family History Medical History Relation Name Comments Diabetes Father No Known Problems Mother Relation Name Status Comments Father Mother Alive Social History Tobacco Use Types Packs/Day Years Used Date Smoking Tobacco: Former Cigarettes Q uit: 10/13/2008 Smokeless Tobacco: Former Alcohol Use Standard Drinks/Week Comments Yes 0 (1 standard drink = 0.6 oz pur e alcohol) Sex and Gender Information Value Date Recorded Sex Assigned at Not on file Legal Sex Male 11:10 AM EST Gender Identity Not on file Sexual Orientation Not on file Obstetrics History Last Filed Vital Signs Vital Sign Reading Time Taken Comments Blood Pressure 140/60 05/12/2025 1:19 PM EDT Pulse 57 04/19/2025 10:31 AM EDT Temperature 36.7 C (98.1 F) 04/13/2025 10:41 AM EDT Respiratory Rate - - Oxygen Saturation 93% 04/19/2025 10:31 AM EDT Inhaled Oxygen Concentration - - Weight 73 kg (161 lb) 05/12/2025 1:19 PM EDT Height 165.1 cm (5' 5 ) 05/12/2025 1:19 PM EDT Body Mass Index 26.79 05/12/2025 1:19 PM EDT Plan of Treatment Upcoming Encounters Date Type Department Care Team (Late st Contact Info) Description 10/18/2025 11:30 AM EST Office Visit [facility] - [place] [place] [phone] Ashely Parada MD [address] [place] [address] Health Maintenance Due Date Last Done Comments Diabetes: Annual Foot Exam 1955 Diabetes: Annual Retina Eye Exam 1955 DTaP,Tdap,and Td Vaccines (1 - Tdap) 1962 Pneumococcal Vaccine: 50+ Years (1 of 2 - PCV) 1962 Zoster Vaccines (1 of 2) 1993 RSV Immunization Adult Patients (1 - 1-dose 75+ series) 2018 Social Influencers of Health Screening 09/10/2022 Diabetes: Annual Urine Albumin-Creatinine Ratio (uACR) 09/27/2022 COVID-19 Vaccine (4 - 2023-2 5 season) 2024 10/25/2021, 02/02/2021, 11/24/2020 Influenza Vaccine (#1) 2025 , 07/13/2024, 09/18/2023 Diabetes: Blood Sugar Contro l Test (HGBA1C) 10/04/2025 04/04/2025 Diabetes: Annual GFR (Glomerular Filtration Rate) 04/04/2026 04/04/2025 Hypertension/CHF/CAD Annual BMP Blood Test 04/04/2026 04/04/2025 Falls Risk Assessment 04/13/2026 04/13/2025 Medicare Annual Wellness Visit 04/13/2026 04/13/2025 Cholesterol Screening (Lipid Panel) 04/04/2030 04/04/2025 Depression Screening Completed 04/13/2025 HIB Vaccines Aged Out No longer eligi ble based on patient's age to complete this topic HPV Vaccines Aged Out No longer eligi ble based on patient's age to complete this topic Hepatitis A Vaccines Aged Out No long er eligible based on patient's age to complete this topic Hepatitis B Vaccines Aged Out No long er eligible based on patient's age to complete this topic IPV Vaccines Aged Out No longer eligi ble based on patient's age to complete this topic MMR Vaccines Aged Out No longer eligi ble based on patient's age to complete this topic Meningococcal ACWY Vaccine Aged Out N o longer eligible based on patient's age to complete this topic Meningococcal B Vaccine Aged Out No l onger eligible based on patient's age to complete this topic RSV Immunization Patients Under 20 months Aged Out No longer eligible b ased on patient's age to complete this topic Varicella Vaccines Aged Out No longer eligible based on patient's age to complete this topic Procedures Procedure Name Priority Date/Time Associated Diagnosis Comments TRANSTHORACIC ECHOCARDIOGRAM (TTE) COMPLETE W/ CONTRAST Routine 05/12/2025 1:19 PM EDT Congestive heart failure, unspecified HF chronicity, unspecified heart failure type (CMS/HCC V24, CMS/HCC V28) H/O coronary artery bypass surgery ECG 12-LEAD Routine 04/19/2025 11:18 AM EDT Congestive heart failure, unspecified HF chronicity, unspecified heart failure type (CMS/HCC V24, CMS/HCC V28) LIPID PANEL WITH REFLEX TO DIRECT LDL Routine 04/04/2025 7:57 AM EDT Primary hypertension Type 2 diabetes mellitus without complication, with long-term current use of insulin ([facility] V24, [facility] V28) Hyperlipidemia, unspecified hyperlipidemia type H/O coronary artery bypass surgery Congestive heart failure (CMS/[facility] V24, CMS/HCC V28) Mild intermittent asthma without complication HEMOGLOBIN A1C Routine 04/04/2025 7:57 AM EDT Primary hypertension Type 2 diabetes mellitus without complication, with long-term current use of insulin ([facility] V24, [facility] V28) Hyperlipidemia, unspecified hyperlipidemia type H/O coronary artery bypass surgery Congestive heart failure (CMS/HCC V24, CMS/HCC V28) Mild intermittent asthma without complication COMPREHENSIVE METABOLIC PANEL Routine 04/04/2025 7:57 AM EDT Primary hypertension Type 2 diabetes mellitus without complication, with long-term current use of insulin ([facility] V24, [facility] V28) Hyperlipidemia, unspecified hyperlipidemia type H/O coronary artery bypass surgery Congestive heart failure (CMS/[facility] V24, CMS/HCC V28) Mild intermittent asthma without complication from Last 3 Months Results * (ABNORMAL) TRANSTHORACIC ECHOCARDIOGRAM (TTE) COMPLETE W/ CONTRAST (05/12/2025 1:19 PM EDT) Left Atrium Minor Mcguffey 5.8 cm CV PACS Left Atrium Major Mcguffey 6.2 cm CV PACS LA Area Sys (A2C) 23 cm2 CV PACS LA Area Sys (A4C) 24 cm2 CV PACS LA Volume (BP) 77 mL CV PACS RA Area 19.7 cm2 CV PACS RA 2D Volume 56 mL CV PACS AV Mean Gradient 7 mmHg CV PACS Ao VTI 42.7 cm CV PACS AV Peak José Miguel 1.8 m/s CV PACS AV Peak Gradient 13 mmHg CV PACS AV Area Continuity Equation 1.9 cm2 CV PACS AV Area Peak Velocity 1.7 cm2 CV PACS Aortic Sinus Valsalva 3.7 cm CV PACS Ascending Aorta 3.8 cm CV PACS IVC Proximal 2.0 cm CV PACS IVC Proximal 0.7 cm CV PACS IVSD 1.1(A) 0.6 - 1.0 cm CV PACS LVIDD 5.2 4.2 - 5.8 cm CV PACS LVIDS 3.4 2.5 - 4.0 cm CV PACS LVOT Diameter 2.0 cm CV PACS LVOT Mean José Miguel 0.6 m/s CV PACS LVOT Mean Grad 2 mmHg CV PACS LVOT Peak VTI 25.8 cm CV PACS LVOT Peak José Miguel 1.0 m/s CV PACS LVOT Peak Gradient 4 mmHg CV PACS LVPWD 1.0 0.6 - 1.0 cm CV PACS MV E' Tissue Velocity Lateral 6 cm/s CV PACS MV E' Tissue Velocity Septal 5 cm/s CV PACS LVOT Area 3.1 cm2 CV PACS LVOT Stroke Volume 81 mL CV PACS E Wave Deceleration Time 248(A) 119 - 242 ms CV PACS MV Peak A José Miguel 0.80 m/s CV PACS MV Peak E José Miguel 0.90 m/s CV PACS AZ End Max Velocity 1.0 m/s CV PACS PA End Diastolic Pressure 4 mmHg CV PACS PV Acceleration Time 137 ms CV PACS PV Acceleration Time 116 ms CV PACS PV Acceleration Time 127 ms CV PACS RV Diastolic Basal Dimension 3.7 2.5 - 4.1 cm CV PACS RV S' 10 cm/s CV PACS TAPSE 17 mm CV PACS E/E' Ratio Septal 18 CV PACS E/E' Ratio Averaged 17 CV PACS Relative Wall Thickness ratio 0.37 0.24 - 0.42 CV PACS LVOT:AV VTI Index 0.60 CV PACS FS 35 % CV PACS LV Mass 2D 205(A) 96 - 200 g CV PACS LVOT flow 188 mL/s CV PACS AV Velocity Ratio 0.54 CV PACS E/A Ratio 1.1 0.8 - 2.0 CV PACS E/E' Ratio Lateral 15 CV PACS BSA 1.83 m2 CV PACS LA Volume Index (BP) 42 mL/m2 CV PACS LVIDD Index 2.89 cm/m2 CV PACS LVIDS Index 1.89 cm/m2 CV PACS LV Mass Index 2D 115(A) 50 - 102 g/m2 CV PACS LVOT Stroke Index 0 mL/m2 CV PACS RA 2D Volume Index 31 18 - 32 mL/m2 CV PACS BOBBY Index (VTI) 1.05 cm2/m2 CV PACS BOBBY Index (Pk José Miguel) 0.94 cm2/m2 CV PACS Ascending Aorta Index 2.11 cm/m2 CV PACS RV Free Wall Peak S' 10 cm/s CV PACS RA Major Mcguffey 5.5 cm CV PACS RA Major Mcguffey Index 3.1(A) 2.1 - 2.7 cm/m2 CV PACS MV PHT 72 ms CV PACS AV Area 2D 1.7 cm2 CV PACS BOBBY Index (2D) 0.94 cm2/m2 CV PACS Inferior Vena Cava Diameter At Inspiration 0.7 cm CV PACS IVC Inspiration Index 0.39 cm/m2 CV PACS Inferior Vena Cava Diameter At Expiration 2.0 cm CV PACS IVC Expiration Index 1.11 cm/m2 CV PACS AV Area Index 0.9 CV PACS Pulmonic Insufficiency End diastolic Peak Flow Velocity 99.1 m/s CV PACS Anatomical Region Laterality Modality Ultrasound Narrative 05/17/2025 11:30 AM EDT Left ventricle cavity size is normal. Left ventricular systolic function is in the normal range with an ejection fraction of 65-70%. No regional LV wall motion abnormalities noted. There is Grade II (moderate) diastolic dysfunction. Right ventricle cavity is normal. Right ventricular systolic function is normal. No hemodynamically significant valve disease. Compared to 2023 probably no significant change. Left Ventricle Left ventricle cavity size is normal. There is borderline concentric hypertrophy. Systolic function is normal with an ejection fraction of 65-70%. There are no regional LV wall motion abnormalities. There is Grade II (moderate) diastolic dysfunction. Right Ventricle Right ventricle cavity appears normal. Systolic function is normal. Left Atrium Left atrium cavity is moderately dilated. Right Atrium Right atrium cavity is normal. IVC/SVC Inferior vena cava structure is normal. RA pressures is estimated to be 3 mmHg (IVC diameter <21 mm and decreases >50% during inspiration). Mitral Valve The leaflets are mildly thickened. There is mild annular calcification. There is trace regurgitation. There is no significant stenosis noted. Tricuspid Valve Tricuspid valve structure is normal. There is trace regurgitation. Tricuspid regurgitation is inadequate for estimation of right ventricular systolic pressure. There is no significant tricuspid valve stenosis. Aortic Valve The aortic valve is trileaflet. The leaflets are mildly thickened and exhibit normal excursion. There is no regurgitation or stenosis. Pulmonic Valve The pulmonic valve was not well visualized. No significant pulmonic valve regurgitation. No significant pulmonary valve stenosis noted. Ascending Aorta The aorta appears normal in size. Pericardium Pericardium appears normal. There is no pericardial effusion. Study Details Overall the study quality was adequate. Definity contrast was given to enhance imaging. Study was difficult due to: poor endocardial visualization. us Madina Guajardo NP CV ECHO PROCEDURES Fin al Result * ECG 12 lead (04/19/2025 11:18 AM EDT) 04/19/2025 10:3 6 AM EDT us Madina Guajardo NP ECG ORDERABLES Final Result GEMUSE * Lipid panel with reflex to direct LDL (04/04/2025 7:57 AM EDT) Cholesterol 146 0 - 200 mg/dL LAB CHEMISTRY METHOD 04/04/2025 10:[address] [facility] Triglycerides 89 0 - 150 mg/dL LAB CHEMISTRY METHOD 04/04/2025 10:[address] [facility] HDL 78 >=40 mg/dL LAB CHEMISTRY METHOD 04/04/2025 10:[address] [facility] LDL Calculated 50 0 - 100 mg/dL LAB CHEMISTRY METHOD 04/04/2025 10:[address] [facility] VLDL Cholesterol Nathanael 17.8 mg/dL LAB CHEMISTRY METHOD 04/04/2025 10:[address] [facility] Non HDL Chol. (LDL+VLDL) 68 <145 mg/dL LAB CHEMISTRY METHOD 04/04/2025 10:[address] [facility] Chol/HDL Ratio 1.9 0.0 - 4.4 LAB CHEMISTRY METHOD 04/04/2025 10:[address] [facility] Blood Venous blood specimen / Unknown Venipuncture / Unknown 04/04/2025 7:57 AM EDT 04/04/2025 7:57 AM EDT us Ashely Parada MD LAB BLOOD ORDERABLES Final Resul t Performing Organization Address [facility] de Phone Number [facility] [address] [place] [address], [place] [phone] * (ABNORMAL) Hemoglobin A1c (04/04/2025 7:57 AM EDT) Hemoglobin A1C 7.1(H) <6.5 % LAB CHEMISTRY METHOD 04/04/2025 1:[address] [facility] Mean Bld Glu Estim. 157 mg/dL LAB CHEMISTRY METHOD 04/04/2025 1:[address] [facility] Blood Venous blood specimen / Unknown Venipuncture / Unknown 04/04/2025 7:57 AM EDT 04/04/2025 7:57 AM EDT us Ashely Parada MD LAB BLOOD ORDERABLES Final Resul t Performing Organization Address [facility]/ZIP Co de Phone Number [facility] [address] [place] [address], [place] [phone] * (ABNORMAL) Comprehensive metabolic panel (04/04/2025 7:57 AM EDT) Sodium 146(H) 133 - 145 mmol/L LAB CHEMISTRY METHOD 04/04/2025 10:53 AM [facility] Potassium 3.9 3.5 - 5.5 mmol/L LAB CHEMISTRY METHOD 04/04/2025 10:53 AM [facility] Chloride 109 96 - 110 mmol/L LAB CHEMISTRY METHOD 04/04/2025 10:53 AM [facility] CO2 31 21 - 32 mmol/L LAB CHEMISTRY METHOD 04/04/2025 10:53 AM [facility] Anion Gap 6 3 - 11 LAB CHEMISTRY METHOD 04/04/2025 10:53 AM [facility] Glucose 99 70 - 100 mg/dL LAB CHEMISTRY METHOD 04/04/2025 10:53 AM [facility] BUN 17 5 - 25 mg/dL LAB CHEMISTRY METHOD 04/04/2025 10:53 AM [facility] Creatinine 0.68(L) 0.70 - 1.30 mg/dL LAB CHEMISTRY METHOD 04/04/2025 10:53 AM [facility] eGFR 93 >=60 mL/min/1. 73m2 LAB CHEMISTRY METHOD 04/04/2025 10:53 AM [facility] Comment:Calculation based on the Chronic Kidney Disease Epidemiology Collaboration (CKD-EPI) equation refit without adjustment for race. BUN/Creatinine Ratio 25.0 LAB CHEMISTRY METHOD 04/04/2025 10:53 AM [facility] Calcium 9.0 8.5 - 10.5 mg/dL LAB CHEMISTRY METHOD 04/04/2025 10:53 AM [facility] AST (SGOT) 18 10 - 42 unit/L LAB CHEMISTRY METHOD 04/04/2025 10:53 AM [facility] ALT (SGPT) 31 10 - 60 unit/L LAB CHEMISTRY METHOD 04/04/2025 10:53 AM [facility] Alkaline Phosphatase 74 42 - 121 unit/L LAB CHEMISTRY METHOD 04/04/2025 10:[address] [facility] Total Protein 6.6 6.0 - 8.0 g/dL LAB CHEMISTRY METHOD 04/04/2025 10:[address] [facility] Albumin 3.9 3.2 - 5.0 g/dL LAB CHEMISTRY METHOD 04/04/2025 10:[address] [facility] Total Bilirubin 0.6 0.0 - 1.4 mg/dL LAB CHEMISTRY METHOD 04/04/2025 10:[address] [facility] Blood Venous blood specimen / Unknown Venipuncture / Unknown 04/04/2025 7:57 AM EDT 04/04/2025 7:57 AM EDT us Ashely Parada MD LAB BLOOD ORDERABLES Final Resul t [facility] [address] [place] [address], from Last 3 Months Insurance [employer] MEDICARE Care Teams [employer] Thresher Relationship Specialty Start Date End Date Ashely Parada MD [address] [place] [address] PCP - General Family Medicine 03/29/25
== END 2025-05-17 13:47 | disposition home or self-care (01) ==
LOC: HO.ENCR 12:48
PROVIDERS: PCP Student in an Organized Health Care Education/Training Program; Visit Provider Student in an Organized Health Care Education/Training Program
DX: E11.59 Type 2 diabetes mellitus with other circulatory complications (principal); Z79.4 Long term (current) use of insulin; E04.2 Nontoxic multinodular goiter; Z86.39 Personal history of other endocrine, nutritional and metabolic disease
CPT/HCPCS: 99205

== ENCOUNTER → 2025-05-17 12:48 | Outpatient (BNVA) | payer MEDICARE, SELFPAY | PROVIDERS: PCP Internal Medicine; Visit Provider Student in an Organized Health Care Education/Training Program | DX: E11.59 Type 2 diabetes mellitus with other circulatory complications (principal); E04.2 Nontoxic multinodular goiter; Z79.4 Long term (current) use of insulin | CPT/HCPCS: 82947; 83036; 99202 ==

== ENCOUNTER 2025-06-23 07:39 | Outpatient (REF) | payer MEDICARE, SELFPAY ==
--- OUTSIDE RECORDS SUMMARY | 2025-06-21 10:15 | XMS_ITS | Encounter Summary ---
Author Organization [facility] Address [address] [place] [id number] Care Team Providers Care Radio Maintainer Name Role Phone Ashely Parada MD Primary Care Provider [phone] Reason for Visit * Reason Comments Abscess Neck * Consultation (Urgent) - Authorized Specialty Diagnoses / Procedures Referred By Contac t Referred To Contact General Surgery Diagnoses Neck abscess Ashely Parada MD [address] [address] Phone: tel: fax: General Surgery - [place] [address] [address] Phone: tel: fax: Referral ID Status Reason Start Date Expiration Date Visits Requested Visits Authorized [id number] Authorized Specialty Services Required 06/17/2025 06/17/2026 1 1 Encounter Details Date Type Department Care Team ([facility] st Contact Info) Description 06/21/2025 10:15 AM EDT Consult General Surgery - [place] [address] [phone] Simba Tony, DO [address] [address] Neck abscess Social History Tobacco Use Types Packs/Day Years Used Date Smoking Tobacco: Former Cigarettes Q uit: 10/13/2008 Smokeless Tobacco: Former Alcohol Use Standard Drinks/Week Comments Yes 0 (1 standard drink = 0.6 oz pur e alcohol) Sex and Gender Information Value Date Recorded Sex Assigned at Male 06/19/2025 6:06 PM EDT Legal Sex Male 11:10 AM EST Gender Identity Male 06/19/2025 6:06 PM EDT Sexual Orientation Straight 06/19/2025 6: 06 PM EDT documented as of this encounter Last Filed Vital Signs Vital Sign Reading Time Taken Comments Blood Pressure 130/48 06/21/2025 10:31 AM EDT Pulse 65 06/21/2025 10:31 AM EDT Temperature - - Respiratory Rate - - Oxygen Saturation - - Inhaled Oxygen Concentration - - Weight 71.9 kg (158 lb 9.6 oz) 06/21/2025 10:31 AM EDT Height 165.1 cm (5' 5 ) 06/21/2025 10:31 AM EDT Body Mass Index 26.39 06/21/2025 10:31 AM EDT documented in this encounter Progress Notes * Simba Tony, - 06/21/2025 10:15 AM EDT Images from the original note were not included. REFERRING PROVIDER: Ashely Parada MD REASON FOR VISIT: Upper back neck infected cyst HPI: This is a very pleasant 79 y.o.-year-old male who presents for consultation regarding infected epidermal inclusion cyst of the neck. The patient is accompanied by his . he reports that he has hadthe cyst for over 20 years and it had been infected in the past requiring incision and drainage. Heagain had similar findings roughly 3 to 4 weeks ago. He was seen by his PCP who prescribed him doxycycline and referred him to our clinic. Patient's provides a picture which shows that it has significantly improved on antibiotics. He has not trialed any warm compresses at this point in time. It is no longer draining. He is not on any anticoagulation but is on aspirin 81 mg. ROS The following symptom list was reviewed with the patient: GENERAL: fevers, chills, sweats, change in weight, fatigue or malaise HEENT: changes in hearing or vision, nasal problems NECK: lumps, goiter, or significant neck swelling RESPIRATORY: cough, wheezing, shortness of breath, pleuritic chest pain CARDIOVASCULAR: chest pain, leg swelling or palpitations GI: abdominal discomfort, blood in stools or black stools : dysuria, frequency or incontinence MUSCULOSKELETAL: joint pain or swelling, back pain, or muscle pain SKIN: lesions, rash or itching PSYCH: sleep disturbance or depression HEMATOLOGY: prolonged bleeding, easy bruisability or swollen nodes ENDOCRINE: cold or heat intolerance, polyuria, polydipsia or goiter NEURO: persistent headache, syncope, seizures, weakness or numbness The patient reported the following as positive: As per HPI; infected epidermal inclusion cyst left posterior neck PAST MEDICAL HISTORY: I personally reviewed the following past medical history with the patient and updated the records as appropriate. Patient Active Problem List Diagnosis Date Noted Neck abscess 06/17/2025 Insomnia 06/17/2025 Medicare annual wellness visit, subsequent 04/13/2025 Serum sodium elevated 04/13/2025 Tongue discoloration 04/13/2025 Encounter to establish care 03/29/2025 Primary hypertension 03/29/2025 Type 2 diabetes mellitus without complication, with long-term current use of insulin ([facility] V24, [facility] V28) 03/29/2025 Mild intermittent asthma without complication 03/29/2025 Benign prostatic hyperplasia with lower urinary tract symptoms 03/29/2025 H/O coronary artery bypass surgery 03/29/2025 Congestive heart failure ([facility] V24, [facility] V28) 03/29/2025 Hyperlipidemia 03/29/2025 PAST SURGICAL HISTORY: I personally reviewed the following past surgical history with the patient and updated the records as appropriate. Past Surgical History: Procedure Laterality Date CATARACT EXTRACTION Right PROCEDURE: HISTORICAL CATARACT REMOVAL OTHER SURGICAL HISTORY TRIPLE BIPASS SOCIAL HISTORY: I personally reviewed the following social history with the patient and updated the records as appropriate. Social History Tobacco Use Smoking status: Former Current packs/day: 0.00 Types: Cigarettes Quit date: 10/13/2008 Years since quittin.6 Smokeless tobacco: Former Substance Use Topics Alcohol use: Yes FAMILY HISTORY: I personally reviewed the following family medical history with the patient and updated the recordsas appropriate. Family History Problem Relation Name Age of Onset No Known Problems Mother Diabetes Father ACTIVE MEDICATIONS: Medication list was reviewed/updated with the patient. No outpatient medications have been marked as taking for the 06/21/25 encounter (Consult) with Taylor Tony DO. ALLERGIES: Allergies Allergen Reactions Apple Extract Hives Christine Rash Fruit Extracts Nutritional Supplement-Fiber Other turkey [place] Rash [place] Rash PHYSICAL EXAM: Visit Vitals BP (!) 130/48 Pulse 65 Ht 1.651 m (65 ) Wt 71.9 kg (158 lb 9.6 oz) BMI 26.39 kg/m?? Smoking Status Former BSA 1.79 m?? GENERAL: Awake, alert, and in no acute distress. HEAD: Normocephalic, atraumatic. EYES: Pupils equal and round. Anicteric sclera. Conjunctiva normal. NECK: soft tissue mass neck with small defect in the skin with small amount of purulence able to beexpressed. No significant surrounding erythema looks to be improved compared to picture provided bywife. CHEST: Non-tender. LUNGS: Clear to auscultation bilaterally without wheezing, rales, or rhonchi. BACK: Grossly normal range of motion. SKIN: Warm, no lesion or rash noted on visible skin. NEURO: Alert and oriented, appropriate. Motor and sensory grossly intact. LABS: No pertinent labs. IMAGING: I No pertinent imaging. ................................................................................ ............................................................. ASSESSMENT & PLAN: 1. Neck abscess Ambulatory referral to General Surgery Follow-up 2 weeks and sooner if worsening for incision and drainage. explained to the patient and his that this is likely a infected epidermal inclusion cyst. Should improve with warm compressesand completing the antibiotics then we can move forward with excision in a couple months. He will follow-up in a few weeks. It was a pleasure seeing Bautista Delarosa at the [facility] today. The patient has been instructed to call with any additional questions or concerns. Thank you for this referral. Dr. Simba Tony DO General Surgery [facility] A Member of [facility] W [phone] F [phone] [place] [address] [email or web address] Ashely Parada MD documented in this encounter Plan of Treatment Upcoming Encounters Date Type Department Care Team (Late st Contact Info) Description 07/01/2025 2:30 PM EDT Office Visit Internal Medicine - [place] [address] [place] [phone] Ashely Parada MD [address] [place] [address] 07/06/2025 9:30 AM EDT Office Visit General Surgery - [place] [address] [facility] [address] [place] [phone] Simba Tony DO 175 [facility] [address] [place] [address] 10/18/2025 11:30 AM EST Office Visit Internal Medicine - [place] [address] [place] [phone] Ashely Parada MD [address] [place] [address] documented as of this encounter Visit Diagnoses Diagnosis Neck abscess Cellulitis and abscess of neck documented in this encounter Orders Outpatient Referral Count Last Ordered Date Fir st Ordered Date AMB REFERRAL TO GENERAL SURGERY 1 documented in this encounter Additional Health Concerns Assessment Noted Time PHQ-9 Depression Total Score: 0 04/13/20 11:05 AM EDT A fall risk assessment has been complete d for the patient 04/13/2025 10:58 AM EDT documented as of this encounter Care Teams Radio Maintainer Relationship Specialty Start Date End Date Ashely Parada MD [address] [place] [address] PCP - General Family Medicine 03/29/25 documented as of this encounter
--- OUTSIDE RECORDS SUMMARY | 2025-06-23 07:44 | XMS_ITS | Clinical Summary ---
Author Organization [facility] Address [address] [place] [address] Phone Care Team Providers Care Placement Officer Name Role Phone Ashely Parada MD Primary Care Provider [phone] Allergies Active Allergy Reactions Criticality Noted Date Comments Apple Extract Hives 03/29/2025 Christine Rash 03/29/2025 Fruit Extracts 07/25/2021 Nutritional Supplement-Fiber 025 Other 03/29/2025 turkey [place] Rash 03/29/[address] Rash 03/29/2025 Medications hydrALAZINE (APRESOLINE) 25 mg [...] tablet extended release Take 20 mEq by mouth 2 (two) times a day. 3 Active atorvastatin (LIPITOR) 40 mg tablet [...] 30 Units under the skin at bedtime. 26-28 unit for 4 months now Active pen needle, diabetic (BD Ultra-Fine Short Pen Needle) 31 gauge x 5/16 needle 1 each by in vitro route 4 (four) times a day. 100 each 5 5 Active FreeStyle Opal 3 Plus Sensor device APPLY 1 SENSOR TO SKIN EVERY 15 DAYS DIRECTED 5 Active doxycycline (VIBRAMYCIN) 100 mg capsuleIndicatio ns:Neck abscess Take 1 capsule (100 mg total) by mouth 2 (two) times a day for 7 days. Take with at least 8 ounces (large glass) of water, do not lie down for 30 minutes after. Administer 2 hours before or after multivitamins, antacids, or other products containing polyvalent cations (i.e., calcium, iron, magnesium, selenium, zinc). 14 each 5 06/24/20 25 Active acetaminophen (Tylenol 8 Hour) 650 mg 8 hr tablet Take 1 tablet (650 mg total) by mouth every 8 (eight) hours if needed for mild pain for up to 10 days. Do not crush, chew, or split. 30 tablet 5 06/27/20 25 Active Active Problems Problem Noted Date Diagnosed Date Neck abscess 06/17/2025 Assessment & Plan (06/17/2025 12:02 PM EDT): - Present for approximately 3 weeks and has increased in size over time - Measures approximately 4 cm x 4 cm, small opening with clear drainage. - Warm compresses recommended throughout the day to alleviate discomfort - Prescription for doxycycline, to be taken twice daily for a minimum of 7 days - Referral to surgery for potential drainage of the abscess-office staff scheduled appt with surgery on Friday - Immediate medical attention at the emergency room advised if any fevers or chills occur Insomnia 06/17/2025 Assessment & Plan (06/17/2025 11:50 AM EDT): - Reports long-standing issues with sleep, including difficulty falling asleep, itching, and rolling in bed. Currently, this is affected by painful abscess. - Sometimes takes Tylenol PM but has not tried melatonin - Sleep study recommended to evaluate for potential underlying sleep apnea but we can discuss this in the future further. Medicare annual wellness visit, subsequent 04/13 Assessment [...] home monitoring needed - Schedule appointment with machinery mover for further evaluation and management Type 2 diabetes mellitus wit hout complication, with long-term current use of insulin ([facility] V24, [facility] V28) 03/29/2025 Assessment & Plan (04/13/2025 12:08 PM EDT): - Diabetes well-controlled with A1c of 7.1, at goal for age and cardiac conditions - No changes to current diabetes management plan necessary Assessment & Plan (03/29/2025 4:20 PM EDT): - Blood glucose levels well-regulated on current regimen -Plan is to establish care with a new flatwork finisher hand - Contact office if experiencing hypoglycemic [...] call to schedule appt. Congestive heart failure (CMS/HCC V24, CMS/HCC V 28) 03/29/2025 Assessment & Plan (04/19/2025 [...] Encounters Date Type Department Care Team Description 06/21/2025 10:15 AM EDT Consult General Surgery - [place] [address] [place] [address] Simba Tony, DO Neck abscess 06/17/2025 11:30 AM EDT Office Visit Internal Medicine - [place] [address] [place] [phone] Ashely Parada MD Neck abscess (Primary Dx); Insomnia, unspecified type 05/12/2025 12:30 PM EDT Ancillary Procedure [facility] [address] [place] [phone] Congestive heart failure, unspecified HF chronicity, unspecified heart failure type ([facility] V24, [facility] V28); H/O coronary artery bypass surgery 04/19/2025 10:10 AM EDT Office Visit [facility] - [address] [place] [phone] Madina uGajardo NP Congestive heart failure, unspecified HF chronicity, unspecified heart failure type ([facility] V24, [facility] V28) (Primary Dx); H/O coronary artery bypass surgery; Primary hypertension 04/13/2025 11:00 AM EDT Office Visit Internal Medicine - [place] [address] [place] [address] Ashely Parada MD Medicare annual wellness visit, subsequent (Primary Dx); Type 2 diabetes mellitus without complication, with long-term current use of insulin ([facility] V24, [facility] V28); Primary hypertension; Serum sodium elevated; Tongue discoloration 03/29/2025 2:30 PM EDT Office Visit Internal Medicine - [place] [address] [place] [address] Ashely Parada MD Encounter to establish care (Primary Dx); H/O coronary artery bypass surgery; Type 2 diabetes mellitus without complication, with long-term current use of insulin ([facility] V24, [facility] V28); Hyperlipidemia, unspecified hyperlipidemia type; Former smoker; Congestive heart failure, unspecified HF chronicity, unspecified heart failure type ([facility] V24, [facility] V28); Primary hypertension; Mild intermittent asthma without complication; Benign prostatic hyperplasia with lower urinary tract symptoms, symptom details unspecified from Last 3 Months Immunizations Name Administration Dates Next Due Influenza trivalent, 0.5mL ( Fluzone High-dose) 65yo and older 08/10/2024,09/18/2023 Influenza trivalent, 0.5mL, preservative free (Fluarix; FluLaval; Fluzone) ages 6mo and older (Afluria) 3 years and older 07/13/2024 Surgical History Surgery Date Site/Laterality Comments CATARACT [...] Orientation Straight 06/19/2025 6: 06 PM EDT Obstetrics History Last Filed Vital Signs Vital Sign Reading Time Taken Comments Blood Pressure 130/48 06/21/2025 10:31 AM EDT Pulse 65 06/21/2025 10:31 AM EDT Temperature 36.7 C (98 F) 06/17/2025 11:15 AM EDT Respiratory Rate - - Oxygen Saturation 95% 06/17/2025 11:15 AM EDT Inhaled Oxygen Concentration - - Weight 71.9 kg (158 lb 9.6 oz) 06/21/2025 10:31 AM EDT Height 165.1 cm (5' 5 ) 06/21/2025 10:31 AM EDT Body Mass Index 26.39 06/21/2025 10:31 AM EDT Plan of Treatment Upcoming Encounters Date Type Department Care Team (Late st Contact Info) Description 07/01/2025 2:30 PM EDT Office Visit Internal Medicine - [place] [address] [place] [phone] Ashely Parada MD [address] [place] [address] 07/06/2025 9:30 AM EDT Office Visit General Surgery - [place] [address] [place] [phone] Simba Tony DO [address] [place] [address] 10/18/2025 11:30 AM EST Office Visit Internal Medicine - [place] [address] [place] [address] Ashely Parada MD [address] [place] [address] Health Maintenance Due Date Last Done Comments [...] Ratio (uACR) 09/27/2022 COVID-19 Vaccine (4 - 2024-2 6 season) 2025 10/25/2021, 02/02/2021, 11/24/2020 Influenza Vaccine (#1) 2025 [...] unspecified HF chronicity, unspecified heart failure type ([facility] V24, [facility] V28) H/O coronary artery bypass surgery ECG 12-LEAD Routine 04/19/2025 11:18 AM EDT Congestive heart failure, unspecified HF chronicity, unspecified heart failure type ([facility]/HCC V24, CMS/HCC V28) LIPID PANEL WITH REFLEX TO DIRECT LDL Routine 04/04/2025 7:57 AM EDT Primary hypertension Type 2 diabetes mellitus without complication, with long-term current use of insulin ([facility]/HCC V24, CMS/HCC V28) Hyperlipidemia, unspecified hyperlipidemia type H/O coronary artery bypass surgery Congestive heart failure (CMS/HCC V24, CMS/HCC V28) Mild intermittent asthma without complication HEMOGLOBIN A1C Routine 04/04/2025 7:57 AM EDT Primary hypertension Type 2 diabetes mellitus without complication, with long-term current use of insulin ([facility] V24, CMS/HCC V28) Hyperlipidemia, unspecified hyperlipidemia type H/O coronary artery bypass surgery Congestive heart failure (CMS/[facility] V24, CMS/HCC V28) Mild intermittent asthma without complication COMPREHENSIVE METABOLIC PANEL Routine 04/04/2025 7:57 AM EDT Primary hypertension Type 2 diabetes mellitus without complication, with long-term current use of insulin (CMS/HCC V24, CMS/HCC V28) Hyperlipidemia, unspecified hyperlipidemia type H/O coronary artery bypass surgery Congestive heart failure (CMS/HCC V24, CMS/HCC V28) Mild intermittent asthma without complication from Last 3 Months Results * (ABNORMAL) TRANSTHORACIC ECHOCARDIOGRAM (TTE) COMPLETE W/ CONTRAST (05/12/2025 1:19 PM EDT) Left Atrium Minor [place] 5.8 cm CV PACS Left Atrium Major [place] 6.2 cm CV PACS [place] Area Sys [...] E José Miguel 0.90 m/s CV PACS [place] End Max Velocity 1.0 m/s CV PACS [...] S' 10 cm/s CV PACS RA Major [place] 5.5 cm CV PACS RA Major [place] Index 3.1(A) 2.1 - 2.7 cm/m2 CV [...] 10:3 6 AM EDT us Madina Guajardo EDGE INKER UPPERS ECG ORDERABLES Final Result VIVIEN * Lipid panel with reflex to direct LDL (04/04/2025 7:57 AM EDT) Cholesterol 146 0 - 200 mg/dL LAB CHEMISTRY METHOD 04/04/2025 10:53 AM EDT [facility] Triglycerides 89 0 - 150 mg/dL LAB CHEMISTRY METHOD 04/04/2025 10:53 AM EDT [facility] HDL 78 >=40 mg/dL LAB CHEMISTRY METHOD 04/04/2025 10:53 AM EDT [facility] LDL Calculated 50 0 - 100 mg/dL LAB CHEMISTRY METHOD 04/04/2025 10:53 AM EDT [facility] VLDL Cholesterol Nathanael 17.8 mg/dL LAB CHEMISTRY METHOD 04/04/2025 10:53 AM EDT [facility] Non HDL Chol. (LDL+VLDL) 68 <145 mg/dL LAB CHEMISTRY METHOD 04/04/2025 10:53 AM EDT [facility] Chol/HDL Ratio 1.9 0.0 - 4.4 LAB CHEMISTRY METHOD 04/04/2025 10:53 AM EDT [facility] Blood Venous blood specimen / Unknown Venipuncture / Unknown 04/04/2025 7:57 AM EDT 04/04/2025 7:57 AM EDT us Ashely Parada MD LAB BLOOD ORDERABLES Final Resul t [facility] [address] [place] [address], * (ABNORMAL) Hemoglobin A1c (04/04/2025 7:57 AM EDT) Hemoglobin A1C 7.1(H) <6.5 % LAB CHEMISTRY METHOD 04/04/2025 1:32 PM [facility] Mean Bld Glu Estim. 157 mg/dL LAB CHEMISTRY METHOD 04/04/2025 1:32 PM [facility] Blood Venous blood specimen / Unknown Venipuncture / Unknown 04/04/2025 7:57 AM EDT 04/04/2025 7:57 AM EDT us Ashely Parada MD LAB BLOOD ORDERABLES Final Resul t [facility] [address] [place] [address], * (ABNORMAL) Comprehensive metabolic panel (04/04/2025 7:57 AM EDT) Sodium 146(H) 133 - 145 mmol/L LAB CHEMISTRY METHOD 04/04/2025 10:53 AM [facility] Potassium 3.9 3.5 - 5.5 mmol/L LAB CHEMISTRY METHOD 04/04/2025 10:53 AM [facility] Chloride 109 96 - 110 mmol/L LAB CHEMISTRY METHOD 04/04/2025 10:53 AM [facility] CO2 31 21 - 32 mmol/L LAB CHEMISTRY METHOD 04/04/2025 10:53 AM [facility] Anion Gap 6 3 - 11 LAB CHEMISTRY METHOD 04/04/2025 10:53 AM [facility] Glucose 99 70 - 100 mg/dL LAB CHEMISTRY METHOD 04/04/2025 10:53 AM [facility] BUN 17 5 - 25 mg/dL LAB CHEMISTRY METHOD 04/04/2025 10:53 AM [facility] Creatinine 0.68(L) 0.70 - 1.30 mg/dL LAB CHEMISTRY METHOD 04/04/2025 10:53 AM [facility] eGFR 93 >=60 mL/min/1. 73m2 LAB CHEMISTRY METHOD 04/04/2025 10:53 AM [facility] Comment:Calculation based on the Chronic Kidney Disease Epidemiology Collaboration (CKD-EPI) equation refit without adjustment for race. BUN/Creatinine Ratio 25.0 LAB CHEMISTRY METHOD 04/04/2025 10:53 AM [facility] Calcium 9.0 8.5 - 10.5 mg/dL LAB CHEMISTRY METHOD 04/04/2025 10:53 AM [facility] AST (SGOT) 18 10 - 42 unit/L LAB CHEMISTRY METHOD 04/04/2025 10:53 AM [facility] ALT (SGPT) 31 10 - 60 unit/L LAB CHEMISTRY METHOD 04/04/2025 10:53 AM [facility] Alkaline Phosphatase 74 42 - 121 unit/L LAB CHEMISTRY METHOD 04/04/2025 10:53 AM [facility] Total Protein 6.6 6.0 - 8.0 g/dL LAB CHEMISTRY METHOD 04/04/2025 10:53 AM [facility] Albumin 3.9 3.2 - 5.0 g/dL LAB CHEMISTRY METHOD 04/04/2025 10:53 AM [facility] Total Bilirubin 0.6 0.0 - 1.4 mg/dL LAB CHEMISTRY METHOD 04/04/2025 10:53 AM [facility] Blood Venous blood specimen / Unknown Venipuncture / Unknown 04/04/2025 7:57 AM EDT 04/04/2025 7:57 AM EDT us Ashely Parada MD LAB BLOOD ORDERABLES Final Resul t [facility] [address] [place] [address], from Last 3 Months Insurance [employer] MEDICARE Care Teams Placement Officer Relationship Specialty Start Date End Date Ashely Parada MD [address] [address] PCP - General Family Medicine 03/29/25
--- OUTSIDE RECORDS SUMMARY | 2025-06-23 07:44 | XMS_ITS | Continuity of Care Document ---
Author Organization [facility] [address] [place] [address] Phone [phone] Care Team Providers Care Linux Admin Name Role Phone Alberto Quach M.D. Care Team Information Recei shereen [phone] Problems Active Problems Provider Date Coronary artery [...] E11.9 Barbi Reina M.D. 01/03/2025 Freestyle Opal 3/[place]/Glucose Monitoring Lhtjrm1Bdayhw Device use with sensors to check blood sugar dx:e11.9 1units Barbi Reina M.D. 01/03/2025 Hydralazine RLZ95de Tablets take 1 tablet three times daily Barbi Reina M.D. 07/05/[address] 1 by mouth every day Rudolph Jose M.D. 03/02/2024 Isosorbide Mononitrate ER60mg Tablets ER 24HR 1 by mouth every day Rudolph Jose M.D. 03/02/2024 Lifestylecomfort Compression Stockings/Medium/10-20MM HGMisc on am and off at bedtime 2units E11.9 Rudolph Jose M.D. 03/02/2024 R60.9 Svrptigyab01fg Tablets 1 by mouth every day Rudolph Jose M.D. 04/04/2023 Lantus Rbjnhsbg821Iwds/ML Solution Pen-Inject 40 units at bedtime 60ml Rudolph gomes M.D. 12/05/2022 Humalog Emvluqy715Jecb/ML Solution Pen-Inject inject 6-15 units subcutaneously before meals 45ml E11Sharmaine Reina M.D. 12/05/2022 Z79.4 BD Pen Needle/Short/Ultra-Fi ne/31G X 8mm31G X 8 mm Misc Use To Inject Insulin Up To Five Times Daily Alberto Quach M.D. Contour Next Blood Glucose TestStrips Us e To Test Blood Sugar Three Times Daily Alberto Quach M.D. Atorvastatin Jykubeu29bo Tablets Take 1 Tablet By Mouth Every Day Alberto Quach M.D. Albuterol Sulfate AQE816(90B ase) mcg/Act Aerosol Inhale 2 Puffs By Mouth Twice Daily Alberto Quach M.D. Fluticasone Ztvpskissn89yyx/ Act Suspension Shake Liquid And Use 1 [place] In Each Nostril Twice Daily Alberto Quach M.D. 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 I25.89 Other forms of chron ic ischemic heart disease I10 Essential (primary) hypertension E78.00 Pure hypercholestero lemia, unspecified Assessments Date Code Description Provider 11/04/2024 E11.9 Type 2 diabetes mellitus wit hout complications KADEN Forde 11/04/2024 Z79.4 termite helper (current) use of i nsulin KADEN Forde 11/04/2024 E04.2 Nontoxic multinodular goiter KADEN Forde 11/04/2024 I25.89 Asymptomatic coronary heart disease KADEN Forde 11/04/2024 I10 Essential hypertension KADEN Oropeza 11/04/2024 E78.00 Hypercholesterolemia KADEN Forde Plan of Treatment No Information Available Functional Status Description No Information Available Mental Status Description No Information Available Referrals Description No Information Available
--- OUTSIDE RECORDS SUMMARY | 2025-06-23 07:44 | XMS_ITS | Clinical Summary ---
Author Organization [facility] Address [address] [place] [address] Care Team Providers Care Region Manager Name Role Phone Alberto Quach MD Primary Care Provider [phone] Allergies No known active allergies Medications amlodipine-ator [...] series) 2018 Covid-19 vaccine series (1 - season) 2025 Influenza vaccine 06/13/2025 Colon cancer screening, Colonoscopy Discontinued Meningococcal B Vaccine Aged Out No l onger eligible based on patient's age to complete this topic Meningococcal Vaccine Aged Out No jose g jayleen eligible based on patient's age to complete this topic Medical Devices Implanted Type Area Fabric Worker Leader Device Identifier Shelf Expiration Date Model / Serial / Lot Lense Sn60wf 20.0 - [id number] Implanted:Qty: 1 on 07/09/2018 by Sridhar Phillips MD at [address] Other-imp lant Left: Eye [facility] [employer] ([employer]) 11/12/2022 [id number] / [id number] / Insurance MEDICARE [facility] MEDICARE [facility] MEDICARE [facility] Care Teams Region Manager Relationship Specialty Start Date End Date Alberto Quach MD PCP - General Internal Medicine 07/09/18
--- OUTSIDE RECORDS SUMMARY | 2025-06-23 07:45 | XMS_ITS | Patient Health Record ---
Author Organization [facility] Address [address] [place] [address] Care Team Providers Care Drivability Technician Name Role Phone Ashely Parada Primary Care Provider Angela Delacruz Unavailable [phone] Allergies No Known Allergies Results Component Value [...] Problem Acquired hammer toe of right foot (6717910952919014 ) Other hammer toe(s) (acquired), right foot (M20.41) Active confirmed Problem Acquired hammer toe of left foot (5002534509539304 ) Other hammer toe(s) (acquired), left foot (M20.42) Active confirmed Problem Polyneuropathy due to type 2 diabetes mellitus (257637552) Type 2 diabetes mellitus with diabetic polyneuropathy (E11.42) Active confirmed Vital Signs Blood pressure diastolic 65 mm Hg 05/05/2025 Height 5 ft 5inch in 05/05/2025 Blood pressure systolic 128 mm Hg 05/05/2025 Weight 160 lbs 05/05/2025 BMI 26.62 kg/m2 05/05/2025 Procedures Procedure Date Ordered Date Performed Result Body Sit e 60278-UZQYDCB NAIL, 6 OR MORE 02/03/2025 N/A 33861-TMSA SKIN LESIONS, 2 TO 4 02/03/2025 N/A Encounters Encounter Location Date Provider Diagnosis [facility] [address] [address] 02/03/2025 Angela Guy Type 2 diabetes mellitus with diabetic polyneuropathy E11.42 ; Tinea unguium B35.1 ; Other hammer toe(s) (acquired), right foot M20.41 and Other hammer toe(s) (acquired), left foot M20.42 [facility] [address] [address] 05/05/2025 Angela Guy Type 2 diabetes mellitus [...] Treatment Pending Test Test Name Order Date 51222-ZFJPSMQ NAIL, 6 OR MORE 02/03/2025 62950-CCZX SKIN LESIONS, 2 TO 4 02/04/20 25 Next Appt Details Provider Name:Angela melo, 08/04/2025 03:15:00 PM, [address] [place], [address], Insurance Providers Payer Name Payer Address Payer Phone Subscriber Number Group Number Insured Name Patient Relationship to Insured Coverage Start Date Coverage End Date [employer] Medicare [id number] [address] [address] [place] [address] [id number] Bautista Delarosa Self - patient is the insured Medical (General) History Medical History History ICD Code Arthritis asthma Back,Hip,and Knee pain Cancer Cataracts covid-19 type II diabetes Heart disease High Blood Pressure Stomach ulcer Vascular phlebitis (clots) Measles Chicken pox Replacement Heart Valves Surgical History Surgery Date(Month/Year) triple bypass 2021
[2025-06-23 09:22] LABS: Alanine Aminotransferase 26 U/L (0-40); Albumin Level 4.6 g/dL (3.5-5.0); Alkaline Phosphatase 67 U/L (39-117); Anion Gap 12 (12-20); Aspartate Amino Transferase 23 U/L (5-37); Blood Urea Nitrogen 12 mg/dL (9-16); Calcium 9.9 mg/dL (8.4-10.2); Carbon Dioxide 33 mmol/L (22-29); Chloride 105 mmol/L (96-108); Cholesterol 113 mg/dL (<200); Estimated Glomerular Filt Rate > 60; HDL Cholesterol 52 mg/dL (>40); Potassium 4.0 mmol/L (3.3-5.1); Sodium 146 mmol/L (135-145); Total Protein 6.8 g/dL (6.5-8.0); Triglycerides 71 mg/dL (<150)
[2025-06-23 09:37] LABS: Free T4 (Free Thyroxine) 1.07 ng/dL (0.71-1.85); Thyroid Stimulating Hormone 1.31 uIU/mL (0.32-4.0)
== END 2025-06-23 07:40 | disposition home or self-care (01) ==
LOC: HO.LAB 07:39
PROVIDERS: PCP Student in an Organized Health Care Education/Training Program; Visit Provider Student in an Organized Health Care Education/Training Program
DX: E04.2 Nontoxic multinodular goiter (principal); E11.59 Type 2 diabetes mellitus with other circulatory complications; Z79.4 Long term (current) use of insulin
CPT/HCPCS: 36415; 80053; 80061; 82043; 82570; 84439; 84443; 84681

== ENCOUNTER 2025-07-11 14:58 | Outpatient (REF) | payer MEDICARE, SELFPAY ==
--- NOTE | ~2025-07-11 | US_ITS ---
EXAMINATION: US THYROID CLINICAL INFORMATION: Nontoxic multinodular goiter COMPARISON: Previous patient report July 2024. Images are not Avenue a labral. TECHNIQUE: Linear transducer grayscale and color Doppler examination with attention to the region of the thyroid. FINDINGS: SIZE: Measurements of the thyroid lobes and nodules are given in sagittal, anteroposterior and transverse dimensions respectively. Right Thyroid Lobe: 5.8 x 2.8 x 2.6 cm, volume 22.0 mL. Previously measured 4.1 x 2.8 x 2.7 and volume 16.1 mL Parenchyma: The gland echotexture is heterogeneous. Thyroid vascularity is normal. Left Thyroid Lobe: 5.7 x 2.3 x 2.0 cm, volume 13.7 mL. Parenchyma: The gland echotexture is heterogeneous. Thyroid vascularity is normal. Isthmus: 0.9 cm in maximum AP dimension. Estimated total number of nodules greater than or equal to 1 cm: 3. The most suspicious nodules are in the right upper pole and right mid pole.. Prevention Coordinator nodules are described as follows: 1. Location: Isthmus lower pole. Size: 2.1 x 2.4 x 1.6 cm. Nodule characteristics: Composition: Mixed cystic and solid (1). Echogenicity: Undetermined. Shape: Wider Margins: Ill-defined (0). Echogenic Foci: None (0). ACR TI-RADS total points: 2 ACR TI-RADS category: 2 2. Location: Isthmus upper pole. Size: 0.9 x 1.0 x 0.6 cm. Nodule characteristics: Composition: Mixed cystic and solid (1). Echogenicity: Hypoechoic (1). Shape: Wider Margins: Smooth (0). Echogenic Foci: None (0). ACR TI-RADS total points: 3 ACR TI-RADS category: 3 3. Location: Right upper pole. Size: 0.5 x 0.5 x 0.5 cm. Nodule characteristics: Composition: Mixed cystic and solid (1). Echogenicity: Hypoechoic (2). Shape: Wider Margins: Irregular (2). Echogenic Foci: Macrocalcifications (1). ACR TI-RADS total points: 6 ACR TI-RADS category: 4 4. Location: Right mid pole. Size: 1.2 x 1.2 x 0.9 cm. Nodule characteristics: Composition: Mixed cystic and solid (1). Echogenicity: Hypoechoic (1). Shape: Wider Margins: Lobulated (2). Echogenic Foci: None (0). ACR TI-RADS total points: 5 ACR TI-RADS category: 4. 5. Location: left midpole. Size: 1.4 x 1.3 x 1.6 cm. Composition: Mixed. Shape: Wider. Margins: Smooth. Echogenic foci: Macrocalcification ACR TI-RADS total points 4. ACR TI-RADS Category 4. NODES: No lymphadenopathy is seen in the tissue surrounding the thyroid gland. US/US thyroid IMPRESSION: Multiple thyroid nodules most suspicious nodules in right upper and mid pole. Recommend follow-up in one year or as per ACR recommendation ACR TI-RADS RECOMMENDATION REFERENCE: Ultrasound-guided fine-needle aspiration, followup ultrasound, no further follow up. * TR1 (0 point) and TR2 (2 points): No FNA or follow up. * TR3 (3 points): FNA if more than or equal to 2.5 cm in maximum dimension, followup ultrasound in 1, 3 and 5 years if 1.5 to 2.4 cm in maximum dimension. * TR4 (4-6 points): FNA if more than or equal to 1.5 cm in maximum dimension, followup ultrasound in 1, 2, 3 and 5 years if 1 to 1.4 cm in maximum dimension. * TR5 (more than or equal to 7 points): FNA if more than or equal to 1 cm in maximum dimension, followup ultrasound every year for 5 years if 0.5 to 0.9 cm in maximum dimension. * TR3, TR4 or TR5 nodules that are below the size threshold for followup receive no follow up. Electronically signed by: Nael Cordoba MD 07/12/2025 07:24 AM EDT
--- OUTSIDE RECORDS SUMMARY | 2025-07-11 17:02 | XMS_ITS | Patient Health Record ---
Author Organization [facility] Address [address] [place] [address] Care Team Providers Care Hose Finisher Name Role Phone Ashely Parada Primary Care Provider Angela Delacruz Unavailable [phone] Allergies No Known Allergies Results Component Value [...] Problem Acquired hammer toe of right foot (2290110477587864 ) Other hammer toe(s) (acquired), right foot (M20.41) Active confirmed Problem Acquired hammer toe of left foot (6350909328289514 ) Other hammer toe(s) (acquired), left foot (M20.42) Active confirmed Problem Polyneuropathy due to type 2 diabetes mellitus (510221758) Type 2 diabetes mellitus with diabetic polyneuropathy (E11.42) Active confirmed Vital Signs Blood pressure diastolic 65 mm Hg 05/05/2025 Height 5 ft 5inch in 05/05/2025 Blood pressure systolic 128 mm Hg 05/05/2025 Weight 160 lbs 05/05/2025 BMI 26.62 kg/m2 05/05/2025 Procedures Procedure Date Ordered Date Performed Result Body Sit e 70230-WEVFEOF NAIL, 6 OR MORE 02/03/2025 N/A 08725-AXRR SKIN LESIONS, 2 TO 4 02/03/2025 N/A Encounters Encounter Location Date Provider Diagnosis [facility] [address] [address] 02/03/2025 Angela Guy Type 2 diabetes mellitus with diabetic polyneuropathy E11.42 ; Tinea unguium B35.1 ; Other hammer toe(s) (acquired), right foot M20.41 and Other hammer toe(s) (acquired), left foot M20.42 [facility] [address] [address] 05/05/2025 Angela Guy Type 2 diabetes mellitus [...] Treatment Pending Test Test Name Order Date [id number] NAIL, 6 OR MORE 02/03/2025 65664-DDLP SKIN LESIONS, 2 TO 4 02/04/20 25 Next Appt Details Provider Name:Angela melo, 08/04/2025 03:15:00 PM, [address] [place], [address], Insurance Providers Payer Name Payer Address Payer Phone Subscriber Number Group Number Insured Name Patient Relationship to Insured Coverage Start Date Coverage End Date [employer] Medicare [id number] [address] [address] [place] [address] [id number] Bautista Dlearosa Self - patient is the insured Medical (General) History Medical History History ICD Code Arthritis asthma Back,Hip,and Knee pain Cancer Cataracts covid-19 type II diabetes Heart disease High Blood Pressure Stomach ulcer Vascular phlebitis (clots) Measles Chicken pox Replacement Heart Valves Surgical History Surgery Date(Month/Year) triple bypass 2021
--- OUTSIDE RECORDS SUMMARY | 2025-07-11 17:02 | XMS_ITS | Encounter Summary ---
Author Organization [facility] Address [address] [place] [address] Care Team Providers Care Metal Numerical Control Programmer Name Role Phone Ashely Parada MD Primary Care Provider [phone] Encounter Details Date Type Department Care Team (Late st Contact Info) Description 07/11/2025 Telephone Internal Medicine - [place] [address] [place] [phone] Jaclyn Meredith RN Social History Tobacco Use Types Packs/Day Years [...] PM EDT documented as of this encounter Progress Notes * Jaclyn Meredith RN - 07/11/2025 9:50 AM EDT Patient called inquiring abut orthopedic referral that was placed and would like contact information for scheduling. documented in this encounter Plan of Treatment Upcoming Encounters Date Type Department Care Team (Late Contact Info) Description 07/13/2025 10:45 AM EDT Office Visit General Surgery - [place] [address] [place] [phone] Simba Tony, DO [address] [place] [address] 10/18/2025 11:30 AM EST Office Visit Internal Medicine - [place] [address] [place] [address] Ashely Parada MD [address] [place] [address] documented as of this encounter Visit Diagnoses Not on filedocumented in this encounter Additional Health Concerns Assessment Noted Time PHQ-9 Depression Total Score: 0 04/13/20 11:05 AM EDT A fall risk assessment has been complete d for the patient 04/13/2025 10:58 AM EDT documented as of this encounter Care Teams Metal Numerical Control Programmer Relationship Specialty Start Date End Date Ashely Parada MD [address] [place] [address] PCP - General Family Medicine 03/29/25 documented as of this encounter
--- OUTSIDE RECORDS SUMMARY | 2025-07-11 17:02 | XMS_ITS | Encounter Summary ---
Author Organization [facility] Address [address] [place] [address] Care Team Providers Care Hairspring Truer Name Role Phone Ashely Parada MD Primary Care Provider [phone] Reason for Referral * Consultation (Routine) - Authorized Specialty Diagnoses / Procedures Referred By Farrah t Referred To Contact Orthopaedics / Orthopaedic Surgery Diagnoses Closed nondisplaced fracture of distal phalanx of left great toe, sequela Ashely Parada MD [address] [place] [address] Phone: tel: fax: Orthopedic[address] [address] Phone: tel: fax: Referral ID Status Reason Start Date Expiration Date Visits Requested Visits Authorized [id number] Authorized Specialty Services Required 07/06/2025 07/06/2026 1 1 Encounter Details Date Type Department Care Team (Late st Contact Info) Description 07/06/2025 Telephone Internal Medicine - [place] [address] [place] [phone] Ashely Parada MD [address] [place] [address] Social History Tobacco Use Types Packs/Day Years [...] as of this encounter Progress Notes * Ashely Parada MD - 07/06/2025 3:40 PM EDT Reviewed urgent care notes, patient was referred to ortho. Spoke to , she was unaware of this. Referral to ortho placed. documented in this encounter Plan of Treatment Upcoming Encounters Date Type Department Care Team (Late st Contact Info) Description 07/13/2025 10:45 AM EDT Office Visit General Surgery - [place] [address] [place] [address] Simba Tony, DO [address] [place] [address] 10/18/2025 11:30 AM EST Office Visit Internal Medicine - [place] [address] [place] [address] Ashely Parada MD [address] [place] [address] Scheduled Referrals Name Type Priority Associated Diagnoses Orde r Schedule Ambulatory referral to Orthopedic Outpatient Referral Routine Closed nondisplaced fracture of distal phalanx of left great toe, sequela 1 Occurrences starting 07/06/2025 until 07/06/2026 documented as of this encounter Visit Diagnoses Diagnosis Closed nondisplaced fracture of distal phalanx of left great toe, sequela- Primary documented in this encounter Additional Health Concerns Assessment Noted Time PHQ-9 Depression Total Score: 0 04/13/20 25 11:05 AM EDT A fall risk assessment has been complete d for the patient 04/13/2025 10:58 AM EDT documented as of this encounter Care Teams Hairspring Truer Relationship Specialty Start Date End Date Ashely Parada MD [address] [place] [address] PCP - General Family Medicine 03/29/25 documented as of this encounter
--- OUTSIDE RECORDS SUMMARY | 2025-07-11 17:02 | XMS_ITS | Clinical Summary ---
Author Organization [facility] Address [address] [place] [phone] Phone Care Team Providers Care Assistant Womens Volleyball Coach Name Role Phone Ashely Parada MD Primary Care Provider [phone] Allergies Active Allergy Reactions Criticality Noted Date Comments Apple Extract Hives 03/29/2025 Christine Rash 03/29/2025 Fruit Extracts 07/25/2021 Nutritional Supplement-Fiber 025 Other 03/29/2025 turkey Custer Rash 03/29/2025 Chamita Rash 03/29/2025 Medications hydrALAZINE (APRESOLINE) 25 mg [...] selenium, zinc). 14 each 5 06/24/20 25 acetaminophen (Tylenol 8 Hour) 650 mg 8 hr tablet Take 1 tablet (650 mg total) by mouth every 8 (eight) hours if needed for mild pain for up to 10 days. Do not crush, chew, or split. 30 tablet 5 06/27/20 25 Active Problems Problem Noted Date Diagnosed Date Nondisplaced fracture of distal phalanx of left great toe 07/06/2025 Injury of left toe 07/01/2025 Assessment & Plan (07/01/2025 3:13 PM EDT): - Lesion appears to be healing well, no signs of infection - Slightly swollen and tender - Bacitracin ointment can be applied if desired, but not necessary - Cover lesion when wearing shoes, leave open otherwise - Avoid manipulating or scratching the area - Return for follow-up or seek immediate care if lesion becomes more red or pus is observed - Seek immediate care if lesion enlarges for prompt antibiotic treatment - Apply warm compresses to the area - Request refill of Tylenol prescription if pain intensifies - Further evaluation by orthopedic technician/podiatry if records from urgent care deem this is necessary. Neck abscess 06/17/2025 Assessment & Plan (06/17/2025 [...] home monitoring needed - Schedule appointment with animal care assistant for further evaluation and management Type 2 diabetes mellitus wit hout complication, with long-term current use of insulin ([facility] V24, [facility] V28) 03/29/2025 Assessment & Plan (04/13/2025 12:08 PM EDT): - Diabetes well-controlled with A1c of 7.1, at goal for age and cardiac conditions - No changes to current diabetes management plan necessary Assessment & Plan (03/29/2025 4:20 PM EDT): - Blood glucose levels well-regulated on current regimen -Plan is to establish care with a new lock and dam repairer - Contact office if experiencing hypoglycemic episodes [...] Encounters Date Type Department Care Team Description 07/11/2025 Telephone Internal Medicine - [place] [address] [place] [address] Jaclyn Meredith RN 07/06/2025 Telephone Internal Medicine - [place] [address] [place] [address] Ashely Parada MD 07/01/2025 2:30 PM EDT Office Visit Internal Medicine - [place] [address] [place] [address] Ashely Parada MD Injury of toe on left foot, sequela (Primary Dx) 06/21/2025 10:15 AM EDT Consult General Surgery - [place] [address] [facility] [address] [place] [phone] Simba Tony, DO Neck abscess 06/17/2025 11:30 AM EDT Office Visit Internal Medicine - [place] [address] [place] [address] Ashely Parada MD Neck abscess (Primary Dx); Insomnia, unspecified type 05/12/2025 12:30 PM EDT Ancillary Procedure [facility] Cardiology [facility] [address] [place] [phone] Congestive heart failure, unspecified HF chronicity, unspecified heart failure type (CMS/HCC V24, CMS/HCC V28); H/O coronary artery bypass surgery 04/19/2025 10:10 AM EDT Office Visit [facility] Cardiology [facility] [address] [place] [phone] Madina Guajardo NP Congestive heart failure, unspecified HF chronicity, unspecified heart failure type (CMS/HCC V24, CMS/HCC V28) (Primary Dx); H/O coronary artery bypass surgery; Primary hypertension 04/13/2025 11:00 AM EDT Office Visit Internal Medicine - [place] [address] [place] [address] Ashely Parada MD Medicare annual wellness visit, subsequent (Primary Dx); Type 2 diabetes mellitus without complication, with long-term current use of insulin ([facility] V24, [facility] V28); Primary hypertension; Serum sodium elevated; Tongue discoloration from Last 3 Months Immunizations Immunization Administration Dates Next Due Influenza trivalent, 0.5mL [...] Type 2 diabetes mellitus wit hout complication DX:Type 2 diabetes mellitus without complication ([facility]) Hyperlipidemia 05/18/2018 DX:Hyperlipidemi a Hypertension 05/18/2018 DX:Hypertension [...] Sign Reading Time Taken Comments Blood Pressure 136/56 07/01/2025 2:16 PM EDT Pulse 65 06/21/2025 10:31 AM EDT Temperature 36.7 C (98.1 F) 07/01/2025 2:16 PM EDT Respiratory Rate - - Oxygen Saturation 95% 07/01/2025 2:16 PM EDT Inhaled Oxygen Concentration - - Weight 73 kg (161 lb) 07/01/2025 2:16 PM EDT Height 165.1 cm (5' 5 ) 07/01/2025 2:16 PM EDT Body Mass Index 26.79 07/01/2025 2:16 PM EDT Plan of Treatment Upcoming Encounters Date Type Department Care Team (Late st Contact Info) Description 07/13/2025 10:45 AM EDT Office Visit General Surgery - [place] [address] [place] [address] Simba Tony, [address] [place] [address] 10/18/2025 11:30 AM EST Office Visit Internal Medicine - [place] [address] [place] [address] Ashely Parada MD [address] [place] [address] Health Maintenance Due Date Last Done Comments [...] Procedure Name Priority Date/Time Associated Diagnosis Comments EXTERNAL CLINICAL LAB 06/24/2025 TRANSTHORACIC ECHOCARDIOGRAM (TTE) COMPLETE W/ CONTRAST Routine 05/12/2025 1:19 PM EDT Congestive heart failure, unspecified HF chronicity, unspecified heart failure type ([facility] V24, [facility] V28) H/O coronary artery bypass surgery ECG 12-LEAD Routine 04/19/2025 11:18 AM EDT Congestive heart failure, unspecified HF chronicity, unspecified heart failure type (CMS/HCC V24, CMS/HCC V28) COMPREHENSIVE METABOLIC PANEL Routine 04/04/2025 7:57 AM EDT Primary hypertension Type 2 diabetes mellitus without complication, with long-term current use of insulin (CMS/HCC V24, [facility] V28) Hyperlipidemia, unspecified hyperlipidemia type H/O coronary artery bypass surgery Congestive heart failure (CMS/HCC V24, [facility] V28) Mild intermittent asthma without complication HEMOGLOBIN A1C Routine 04/04/2025 7:57 AM EDT Primary hypertension Type 2 diabetes mellitus without complication, with long-term current use of insulin ([facility] V24, [facility] V28) Hyperlipidemia, unspecified hyperlipidemia type H/O coronary artery bypass surgery Congestive heart failure ([facility] V24, [facility] V28) Mild intermittent asthma without complication LIPID PANEL WITH REFLEX TO DIRECT LDL Routine 04/04/2025 7:57 AM EDT Primary hypertension Type 2 diabetes mellitus without complication, with long-term current use of insulin ([facility] V24, [facility] V28) Hyperlipidemia, unspecified hyperlipidemia type H/O coronary artery bypass surgery Congestive heart failure ([facility] V24, [facility] V28) Mild intermittent asthma without complication from Last 3 Months or Most Recently Relevant to Health Maintenance Results * External clinical lab (06/24/2025) Provider [facility] LAB BLOOD ORDERABLES Fin al Result * (ABNORMAL) TRANSTHORACIC ECHOCARDIOGRAM (TTE) COMPLETE W/ CONTRAST (05/12/2025 1:19 PM EDT) Left [facility] [place] 5.8 cm CV PACS Left [facility] [place] 6.2 cm CV PACS LA Area Sys [...] E José Miguel 0.90 m/s CV PACS ME End Max Velocity 1.0 m/s CV PACS [...] S' 10 cm/s CV PACS RA Major [place] 5.5 cm CV PACS RA Major [place] Index 3.1(A) 2.1 - 2.7 cm/m2 CV [...] AM EDT) 04/19/2025 10:3 6 AM EDT Madina Guajardo CHIEF LIBRARIAN CIRCULATION DEPARTMENT ECG ORDERABLES Final Result GEMUSE * Lipid panel with reflex to direct LDL (04/04/2025 7:57 AM EDT) Cholesterol 146 0 - 200 mg/dL LAB CHEMISTRY METHOD 04/04/2025 10:53 AM [facility] Triglycerides 89 0 - 150 mg/dL LAB CHEMISTRY METHOD 04/04/2025 10:53 AM [facility] HDL 78 >=40 mg/dL LAB CHEMISTRY METHOD 04/04/2025 10:53 AM [facility] LDL Calculated 50 0 - 100 mg/dL LAB CHEMISTRY METHOD 04/04/2025 10:53 AM [facility] VLDL Cholesterol Nathanael 17.8 mg/dL LAB CHEMISTRY METHOD 04/04/2025 10:53 AM [facility] Non HDL Chol. (LDL+VLDL) 68 <145 mg/dL LAB CHEMISTRY METHOD 04/04/2025 10:53 AM [facility] Chol/HDL Ratio 1.9 0.0 - 4.4 LAB CHEMISTRY METHOD 04/04/2025 10:53 AM [facility] Blood Venous blood specimen / Unknown Venipuncture / Unknown 04/04/2025 7:57 AM EDT 04/04/2025 7:57 AM EDT us Ashely Parada MD LAB BLOOD ORDERABLES Final Resul t Performing Organization Address [facility]/ZIP Co de Phone Number [facility] [address] [place] [address], [place] [phone] * (ABNORMAL) Hemoglobin A1c (04/04/2025 7:57 AM EDT) Hemoglobin A1C 7.1(H) <6.5 % LAB CHEMISTRY METHOD 04/04/2025 1:32 PM EDT [facility] Mean Bld Glu Estim. 157 mg/dL LAB CHEMISTRY METHOD 04/04/2025 1:32 PM EDT [facility] Blood Venous blood specimen / Unknown Venipuncture / Unknown 04/04/2025 7:57 AM EDT 04/04/2025 7:57 AM EDT us Ashely Parada MD LAB BLOOD ORDERABLES Final Resul t Performing Organization Address [facility]/ZIP Co de Phone Number [facility] [address] [place] [address], [place] [phone] * (ABNORMAL) Comprehensive metabolic panel (04/04/2025 7:57 AM EDT) Sodium 146(H) 133 - 145 mmol/L LAB CHEMISTRY METHOD 04/04/2025 10:53 AM EDT [facility] Potassium 3.9 3.5 - 5.5 mmol/L LAB CHEMISTRY METHOD 04/04/2025 10:53 AM EDT [facility] Chloride 109 96 - 110 mmol/L LAB CHEMISTRY METHOD 04/04/2025 10:53 AM EDT [facility] CO2 31 21 - 32 mmol/L LAB CHEMISTRY METHOD 04/04/2025 10:53 AM EDT [facility] Anion Gap 6 3 - 11 LAB CHEMISTRY METHOD 04/04/2025 10:53 AM [facility] Glucose 99 70 - 100 mg/dL LAB CHEMISTRY METHOD 04/04/2025 10:53 AM [facility] BUN 17 5 - 25 mg/dL LAB CHEMISTRY METHOD 04/04/2025 10:53 AM [facility] Creatinine 0.68(L) 0.70 - 1.30 mg/dL LAB CHEMISTRY METHOD 04/04/2025 10:53 AM [facility] eGFR 93 >=60 mL/min/1. 73m2 LAB CHEMISTRY METHOD 04/04/2025 10:53 AM [facility] Comment:Calculation based on the Chronic Kidney Disease Epidemiology Collaboration (CKD-EPI) equation refit without adjustment for race. BUN/Creatinine Ratio 25.0 LAB CHEMISTRY METHOD 04/04/2025 10:53 AM [facility] Calcium 9.0 8.5 - 10.5 mg/dL LAB CHEMISTRY METHOD 04/04/2025 10:53 AM [facility] AST (SGOT) 18 10 - 42 unit/L LAB CHEMISTRY METHOD 04/04/2025 10:53 AM [facility] ALT (SGPT) 31 10 - 60 unit/L LAB CHEMISTRY METHOD 04/04/2025 10:53 AM [facility] Alkaline Phosphatase 74 42 - 121 unit/L LAB CHEMISTRY METHOD 04/04/2025 10:53 AM [facility] Total Protein 6.6 6.0 - 8.0 g/dL LAB CHEMISTRY METHOD 04/04/2025 10:53 AM [facility] Albumin 3.9 3.2 - 5.0 g/dL LAB CHEMISTRY METHOD 04/04/2025 10:53 AM [facility] Total Bilirubin 0.6 0.0 - 1.4 mg/dL LAB CHEMISTRY METHOD 04/04/2025 10:53 AM [facility] Blood Venous blood specimen / Unknown Venipuncture / Unknown 04/04/2025 7:57 AM EDT 04/04/2025 7:57 AM EDT Ashely Parada MD LAB BLOOD ORDERABLES Final Resul t [facility] [address] [place] [address], from Last 3 Months or Most Recently Relevant to Health Maintenance Insurance [employer] MEDICARE Care Teams Assistant Womens Volleyball Coach Relationship Specialty Start Date End Date Ashely Parada MD [address] [place] [address] PCP - General Family Medicine 03/29/25
--- OUTSIDE RECORDS SUMMARY | 2025-07-11 17:02 | XMS_ITS | Continuity of Care Document ---
Author Organization [facility] [address] [place] [address] Phone [phone] Care Team Providers Care Cantilever Crane Operator Name Role Phone Alberto Quach M.D. Care Team Information Recei shereen [phone] Problems Active Problems Provider Date Coronary artery [...] E11.9 Barbi Reina M.D. 01/03/2025 Freestyle Opal 3/[place]/Glucose Monitoring Gtalqa9Lsursq Device use with sensors to check blood sugar dx:e11.9 1units Barbi Reina M.D. 01/03/2025 Hydralazine NVZ09ti Tablets take 1 tablet three times daily Barbi Reina M.D. 07/05/[address] 1 by mouth every day Rudolph Jose M.D. 03/02/2024 Isosorbide Mononitrate ER60mg Tablets ER 24HR 1 by mouth every day Rudolph Jose M.D. 03/02/2024 Lifestylecomfort Compression Stockings/Medium/10-20MM HGMisc on am and off at bedtime 2units E11.9 Rudolph Jose M.D. 03/02/2024 R60.9 Fjueahjcid78wv Tablets 1 by mouth every day Rudolph Jose M.D. 04/04/2023 Lantus Mkkogprm973Wuta/ML Solution Pen-Inject 40 units at bedtime 60ml Rudolph gomes M.D. 12/05/2022 Humalog Nnwexte857Hxvk/ML Solution Pen-Inject inject 6-15 units subcutaneously before meals 45ml E11Sharmaine Reina M.D. 12/05/2022 Z79.4 BD Pen Needle/Short/Ultra-Fi ne/31G X 8mm31G X 8 mm Misc Use To Inject Insulin Up To Five Times Daily Alberto Quach M.D. Contour Next Blood Glucose TestStrips Us e To Test Blood Sugar Three Times Daily Alberto Quach M.D. Atorvastatin Prjqcya94yu Tablets Take 1 Tablet By Mouth Every Day Alberto Quach M.D. Albuterol Sulfate ZIG643(90B ase) mcg/Act Aerosol Inhale 2 Puffs By Mouth Twice Daily Alberto Quach M.D. Fluticasone Qujrvwxwer43ifw/ Act Suspension Shake Liquid And Use 1 Greer In Each Nostril Twice Daily Alberto Quach M.D. Povbskapir08.5mg Tablets Take 1 Tablet B y Mouth [...] 6.8% Procedures Date Code Description Status 11/04/2024 70400 Glucose Monitoring Interpeta tion And Report Completed 07/05/2024 30529 Glucose Monitoring Interpeta tion And Report Completed 12/03/2022 NSHOWOFF No Show Office Visit Complet ed Medical Devices Description No Information Available Encounters Type Date Location Provider Dx Diagnosis Office Visit 11/04/2024 2:15p Main Office KADEN Forde E11.9 Type 2 diabet es mellitus without complications Z79.4 USP (current) use of insulin 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 I25.89 Other forms of chron ic ischemic heart disease I10 Essential (primary) hypertension E78.00 Pure hypercholestero lemia, unspecified Assessments Date Code Description Provider 11/04/2024 E11.9 Type 2 diabetes mellitus wit hout complications KADEN Forde 11/04/2024 Z79.4 termite inspector (current) use of i nsulin KADEN Forde 11/04/2024 E04.2 Nontoxic multinodular goiter KADEN Forde 11/04/2024 I25.89 Asymptomatic coronary heart disease KADEN Forde 11/04/2024 I10 Essential hypertension KADEN Oropeza 11/04/2024 E78.00 Hypercholesterolemia KADEN Forde Plan of Treatment No Information Available Functional Status Description No Information Available Mental Status Description No Information Available Referrals Description No Information Available
--- OUTSIDE RECORDS SUMMARY | 2025-07-11 17:02 | XMS_ITS | Clinical Summary ---
Author Organization [address] [facility] Address [address] [place] [address] Care Team Providers Care Glass Rolling Machine Operator Name Role Phone Alberto Quach MD Primary Care Provider [phone] Allergies No known active allergies Medications amlodipine-ator [...] Immunization (1 - 1-dose 75+ series) 2018 Influenza vaccine 05/13/2025 Covid-19 vaccine series ( - season) 2025 Colon cancer screening, Colonoscopy Discontinued Meningococcal B Vaccine Aged Out No l onger eligible based on patient's age to complete this topic Meningococcal Vaccine Aged Out No jose g jayleen eligible based on patient's age to complete this topic Medical Devices Implanted Type Area Track Laying Equipment Operator Device Identifier Shelf Expiration Date Model / Serial / Lot Lense [id number] 20.0 - [id number] Implanted:Qty: 1 on 07/09/2018 by Sridhar Phillips MD at [address] Other-imp lant Left: Eye [facility] ([employer]) 11/12/2022 [id number] / [id number] / Insurance MEDICARE [facility] MEDICARE [facility] MEDICARE [facility] Care Teams Glass Rolling Machine Operator Relationship Specialty Start Date End Date Alberto Quach MD PCP - General Internal Medicine 07/09/18
== END 2025-07-11 14:59 | disposition home or self-care (01) ==
LOC: HO.US 14:58
PROVIDERS: PCP Student in an Organized Health Care Education/Training Program; Visit Provider Student in an Organized Health Care Education/Training Program
DX: E04.2 Nontoxic multinodular goiter (principal)
CPT/HCPCS: 76536

== ENCOUNTER → 2025-07-11 15:00 | Outpatient (BNV) | payer MEDICARE, SELFPAY | PROVIDERS: PCP Student in an Organized Health Care Education/Training Program; Visit Provider Radiology Diagnostic Radiology | DX: E04.2 Nontoxic multinodular goiter (principal) | CPT/HCPCS: 76536 ==

== ENCOUNTER 2025-07-28 13:41 | Outpatient (AMB) | payer MEDICARE, SELFPAY ==
[2025-07-28 13:55] VITALS: BP 128/62; PULSE 63; O2SAT 95; BMI 26.6
--- NOTE | 2025-07-28 13:55 | MHC.OFFVIS ---
Vital Signs 07/28/25 13:55 Height 5 ft 5 in Weight 160 lb 0.889 oz BMI 26.6 BP 128/62 Blood Pressure Location Lt brachial Position Sitting Pulse 63 Pulse Source Pulse Oximeter Pulse Oximetry (%) 95 Oxygen Delivery Method Room Air Intake Visit Reasons: DMT2 & Multinodular Goiter Intake Note: Patient present today for a follow-up on Type 2 Diabetes Mellitus and Multinodular Goiter: Last Diabetic eye exam: 02/2025 Last Podiatry Visit: 04/2025 Most Recent HgA1C: 6.6%, 05/17/2025 Random Glucose: 132? ?mg/dL, Today Upper Stitcher Required: No Accompanied by: Spouse Allergies No Known Allergies Allergy (Verified 07/28/25 14:03) Medication List - Last Reconciled 07/28/25 by Brianna Bustamante MD albuterol sulfate 90 mcg/actuation 1 puff inhalation Q4H PRN aspirin 81 mg PO DAILY atorvastatin 40 mg PO DAILY blood sugar diagnostic (Accu-Chek Tara Plus test strips) As directed blood-glucose sensor (FreeStyle Opal 3 Plus Sensor device) As directed every 15 days blood-glucose,business performance advisor,cont (FreeStyle Opal 3 [place]) As directed carvedilol 12.5 mg PO BID fluticasone propionate 50 mcg/actuation 1 spray intranasal DAILY hydralazine 25 mg PO TID hydralazine 25 mg PO TID insulin glargine (Lantus Solostar U-100 Insulin) 26 units (0.26 mL) subcut BEDTIME insulin lispro (Humalog KwikPen (U-100) Insulin) subcutaneously 3 times a day before meals ; 80-120= 12 units 151-200=14 units 201- 250= 16 units 251-300= 18 units 301-350= 20 units upto max 60 units per day isosorbide mononitrate ER 120 mg PO DAILY lancets (Accu-Chek Softclix Lancets) As directed pen needle, diabetic (1st Tier Unifine Pentips) As directed to inject insulin 4 times a day torsemide 20 mg PO BID HPI Comments Details: 79-year-old male here today for follow up type 2 diabetes mellitus and multinodular thyroid. Was previously following with the [facility], now establishing care with us. Was seeing Dr. Jose there who is retired , also due to insurance issues. Type 2 diabetes mellitus History of diabetes Was diagnosed in his 40s Prior therapy: metformin , switched to insulin in his 40s after CABG Current regimen: Lantus 26 units daily at night Humalog subcutaneously 3 times a day takes it 10 mins before meals 80-120= 12 units 151-200=14 units 201- 250= 16 units 251-300= 18 units 301-350= 20 units mostly requiring 12 to 14 units HAs freestyle opal 3 Freestyle Opal 3 downloaded from July 15 to 07/28/2025 Time CGM active 97% Average glucose 146 mg/dL G MN 6.8% Glucose variability 25% Within target range 80% High 19% Very high is 0% Low 1% Very low 0% Interpretation: Mostly excellent glycemic control with some overnight hyperglycemia, a few low readings noted in the afternoon but nothing very significant. Has accucheck meter , strips and lancets at home for back up Denies any symptoms of hyperglycemia including polyphagia, polyuria, polydipsia. Denies any hypoglycemic symptoms. 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 Multinodular goiter Ultrasound thyroid dated July 2024 showed a right lower pole 1.6 cm TR 4 solid hypoechoic with possible macrocalcification nodule which is new per chart review. Another right lower pole nodule abutting the isthmus measuring 1.4 cm in the largest dimension TR 3, also new, this is mixed cystic solid. Another mid to upper pole nodule abutting the isthmus measuring 1.4 cm TR 3 which is stable from previous ultrasound per report. In the left lobe left midpole 1.8 cm mixed cystic solid, hypoechoic, with macrocalcification TR 4 nodule and an inferior left isthmic nodule measuring 2.2 cm TR 4, mixed cystic solid, with a lobulated margin unchanged in size. Apparently he had biopsy in July 2019 of the isthmus and left lobe nodule which were benign. January 2024 she also had a biopsy of an isthmus nodule , per patient this was nondiagnostic No compressive symptoms. No family history of thyroid cancer. No personal history of head or neck radiation. Interval history Ultrasound thyroid 07/11/2025, I reviewed the images myself which showed isthmus lower pole 2.4 cm mixed cystic solid TR 2 nodule, this was labeled as TR 4 category on outside ultrasound in July 2024, remains relatively stable in size, and was biopsied in January 2024, per patient was nondiagnostic but was apparently also biopsied previously in 2019 and was benign., isthmus upper pole 1 cm mixed cystic/solid hypoechoic TR 3 nodule, right superior 0.5 cm mixed cystic/solid hypoechoic nodule with macrocalcifications, TR 4 category, right midpole 1.2 cm mixed cystic solid hypoechoic lobulated TR 4 nodule, her left midpole 1.6 cm mixed cystic solid nodule with macrocalcification TR 4 category. This is stable in size compared to ultrasound from July 2024 done at previous facility. This was apparently previously biopsied in 2019 and was benign per patient. Normal TFTs from June 2025 Physical exam General: sitting comfortably in no acute distress HEENT: normocephalic/atraumatic, Neck: supple, Cardiac: normal heart sounds Pulm: normal breath sounds B/L, no added breath sounds Abd: not distended, no tenderness Extremities: no edema, no signs of myxedema Neuro: AAO x3, Speech: normal, no facial droop, moving all 4 extremities [facility] Medical History Type 2 diabetes mellitus Asymptomatic coronary heart disease Edema Hyperthyroidism Thyroid nodule longterm (current) use of insulin Pure hypercholesterolemia, unspecified Essential (primary) hypertension Other forms of chronic ischemic heart disease Nontoxic multinodular goiter Type 2 diabetes mellitus without complications Surgical History Hx of coronary artery bypass graft Family History Father No problems noted. Mother No problems noted. Social History Household Members: Spouse Alcohol intake: current Alcohol intake frequency: does not drink Patient Tobacco Use Status: Never used Tobacco Physical Exam Vital Signs: Last Vital Signs Pulse 63 07/28/25 13:55 BP 128/62 07/28/25 13:55 Pulse Ox 95 07/28/25 13:55 Oxygen Delivery Method Room Air 07/28/25 13:55 BMI result Body Mass Index 26.6 Office Procedures Glucose Monitoring Details Details: see [facility] [address]489 - Glucose monitoring, continuous-physician I&R Procedure code (CPT) selection complete Assessment & Plan Assessment & Plan (1) Type 2 diabetes mellitus: Code(s): E11.9 - Type 2 diabetes mellitus without complications Category: Medical Qualifiers: Diabetes mellitus complication detail: with other circulatory complications Diabetes mellitus complication status: with circulatory complication Diabetes mellitus terminal system operator insulin use: with mcfp use Qualified Code(s): E11.59 - Type 2 diabetes mellitus with other circulatory complications; Z79.4 - superintendent container terminal (current) use of insulin Plan: 79-year-old male coming in today for follow up of type 2 diabetes mellitus with complications of retinopathy, CAD. He was diagnosed with diabetes in his 40s, . Currently on long-term insulin with a basal bolus regimen. He has tried metformin in the past, looks like it was just discontinued due to poor control, he has never been on any GLP 1 agonist or SGLT2 inhibitors. A1c POC 05/17/2025 at 6.6% which is within goal A1c of less than 7%. He is wearing a freestyle Opal 3, data downloaded for the past 2 weeks shows he is in target range 80% of the time. Overall excellent glycemic control with only some overnight hyperglycemia. We also reviewed complications of hyperglycemia. Plan: - increase Lantus to 28 units daily from 26 units daily. -continue current HumalogHumalog subcutaneously 3 times a day , take it 15 mins before meals 80-120= 12 units 151-200=14 units 201- 250= 16 units 251-300= 18 units 301-350= 20 units -upgrade to freestyle Opal 3+, hoop maker helper machine referral placed -foot exam deferred today , he had his feet last checked in April 2025 by PCP -ordered labs -has a retinopathy, up-to-date with eye visit, last seen February 2025 (2) Nontoxic multinodular goiter: Code(s): E04.2 - Nontoxic multinodular goiter Category: Medical Plan: 79-year-old male with no family history of thyroid cancer, with no personal history of head or neck radiation, who also has History of multinodular goiter Ultrasound thyroid dated July 2024 showed a right lower pole 1.6 cm TR 4 solid hypoechoic with possible macrocalcification nodule which is new per chart review. Another right lower pole nodule abutting the isthmus measuring 1.4 cm in the largest dimension TR 3, also new, this is mixed cystic solid. Another mid to upper pole nodule abutting the isthmus measuring 1.4 cm TR 3 which is stable from previous ultrasound per report. In the left lobe left midpole 1.8 cm mixed cystic solid, hypoechoic, with macrocalcification TR 4 nodule and an inferior left isthmic nodule measuring 2.2 cm TR 4, mixed cystic solid, with a lobulated margin unchanged in size. Apparently he had biopsy in July 2019 of the isthmus and left lobe nodule which were benign. January 2024 she also had a biopsy of an isthmus nodule , per patient this was nondiagnostic Ultrasound thyroid 07/11/2025, I reviewed the images myself which showed isthmus lower pole 2.4 cm mixed cystic solid TR 2 nodule, this was labeled as TR 4 category on outside ultrasound in July 2024, remains relatively stable in size, and was biopsied in January 2024, per patient was nondiagnostic but was apparently also biopsied previously in 2019 and was benign., isthmus upper pole 1 cm mixed cystic/solid hypoechoic TR 3 nodule, right superior 0.5 cm mixed cystic/solid hypoechoic nodule with macrocalcifications, TR 4 category, right midpole 1.2 cm mixed cystic solid hypoechoic lobulated TR 4 nodule, her left midpole 1.6 cm mixed cystic solid nodule with macrocalcification TR 4 category. This is stable in size compared to ultrasound from July 2024 done at previous facility. This was apparently previously biopsied in 2019 and was benign per patient. I discussed with the patient that some of his nodules meet criteria for biopsy but per patient he has had benign results for them previously in 2019. More recent biopsy result was nondiagnostic. However I do not have any of these records. And I would not be able to obtain them. I gave them the option of repeating biopsies versus ultrasound monitoring. At this time they understand there is a 5-10% risk of malignancy but they would like to continue with monitoring. No compressive symptoms. Normal TFTs from June 2025 Plan: -we will plan to repeat ultrasound of the thyroid in 1 year in June 2026 Plan I spent 30 minutes in reviewing the record, seeing the patient and documenting in the medical record. Orders: Orders AMB Glucose Monitoring Today E11.59 - Type 2 diabetes mellitus with other circulatory complications, Z79.4 - longterm (current) use of insulin Medications: Changed From insulin glargine (Lantus Solostar U-100 Insulin) 26 units (0.26 mL) subcut BEDTIME 30 mL 2RF E11.59 - Type 2 diabetes mellitus with other circulatory complications, Z79.4 - superintendent container terminal (current) use of insulin To insulin glargine (Lantus Solostar U-100 Insulin) 28 units (0.28 mL) subcut BEDTIME 30 mL 6RF E11.59 - Type 2 diabetes mellitus with other circulatory complications, Z79.4 - superintendent container terminal (current) use of insulin Refilled insulin lispro (Humalog KwikPen (U-100) Insulin) subcutaneously 3 times a day before meals ; 80-120= 12 units 151-200=14 units 201- 250= 16 units 251-300= 18 units 301-350= 20 units upto max 60 units per day 30 mL 6RF E11.59 - Type 2 diabetes mellitus with other circulatory complications, Z79.4 - longterm (current) use of insulin blood-glucose sensor (FreeStyle Opal 3 Plus Sensor device) As directed every 15 days 6 ea 6RF E11.59 - Type 2 diabetes mellitus with other circulatory complications, Z79.4 - superintendent container terminal (current) use of insulin Patient Instructions: Lantus 28 units daily at night Humalog subcutaneously 3 times a day takes it 15 mins before meals 80-120= 12 units 151-200=14 units 201- 250= 16 units 251-300= 18 units 301-350= 20 units mostly requiring 12 to 14 units Coding Level of Care Code Est Pt Level 4 (75699) Diagnoses Type 2 diabetes mellitus with other circulatory complication, with long-term current use of insulin E11.59; Z79.4 Diabetes mellitus complication detail: with other circulatory complications Diabetes mellitus complication status: with circulatory complication Diabetes mellitus terminal system operator insulin use: with terminal system operator use Nontoxic multinodular goiter E04.2 CPT Codes Details - CPT: 86395 - Glucose monitoring, continuous-physician I&R ([id number]) Time Spent (min) 30
[2025-07-28 14:14] LABS: Glucose, Whole Blood 132 mg/dL (60-115)
--- OUTSIDE RECORDS SUMMARY | 2025-07-28 17:26 | XMS_ITS | Patient Health Record ---
Author Organization [facility] Address [address] [place] [address] Care Team Providers Care Mold Cleaning And Storage Supervisor Name Role Phone Ashely Parada Primary Care Provider Angela Delacruz Unavailable [phone] Allergies No Known Allergies Results Component Value [...] Problem Acquired hammer toe of right foot (8791464266972517 ) Other hammer toe(s) (acquired), right foot (M20.41) Active confirmed Problem Acquired hammer toe of left foot (2008433199818142 ) Other hammer toe(s) (acquired), left foot (M20.42) Active confirmed Problem Polyneuropathy due to type 2 diabetes mellitus (238300609) Type 2 diabetes mellitus with diabetic polyneuropathy (E11.42) Active confirmed Vital Signs Blood pressure diastolic 65 mm Hg 05/05/2025 Height 5 ft 5inch in 05/05/2025 Blood pressure systolic 128 mm Hg 05/05/2025 Weight 160 lbs 05/05/2025 BMI 26.62 kg/m2 05/05/2025 Procedures Procedure Date Ordered Date Performed Result Body Sit e 20514-VAEHYWO NAIL, 6 OR MORE 02/03/2025 N/A 84182-NGRG SKIN LESIONS, 2 TO 4 02/03/2025 N/A Encounters Encounter Location Date Provider Diagnosis [facility] [address] [address] 02/03/2025 Angela Guy Type 2 diabetes mellitus with diabetic polyneuropathy E11.42 ; Tinea unguium B35.1 ; Other hammer toe(s) (acquired), right foot M20.41 and Other hammer toe(s) (acquired), left foot M20.42 [facility] [address] [address] 05/05/2025 Angela Guy Type 2 diabetes mellitus [...] Treatment Pending Test Test Name Order Date 93241-FTHGKHT NAIL, 6 OR MORE 02/03/2025 46657-AHRC SKIN LESIONS, 2 TO 4 02/04/20 25 Next Appt Details Provider Name:Angela melo, 08/04/2025 03:15:00 PM, [address] [place], [address], Insurance Providers Payer Name Payer Address Payer Phone Subscriber Number Group Number Insured Name Patient Relationship to Insured Coverage Start Date Coverage End Date [employer] Medicare Adv-[id number] [address] [address] [place] [address] [id number] Bautista Delarosa Self - patient is the insured Medical (General) History Medical History History ICD Code Arthritis asthma Back,Hip,and Knee pain Cancer Cataracts covid-19 type II diabetes Heart disease High Blood Pressure Stomach ulcer Vascular phlebitis (clots) Measles Chicken pox Replacement Heart Valves Surgical History Surgery Date(Month/Year) triple bypass 2021
--- OUTSIDE RECORDS SUMMARY | 2025-07-28 17:26 | XMS_ITS | Continuity of Care Document ---
Author Organization [facility] [address] [place] [address] Phone [phone] Care Team Providers Care Academic Vice President Name Role Phone Alberto Quach M.D. Care Team Information Recei shereen [phone] Problems Active Problems Provider Date Coronary artery [...] E11.9 Barbi Reina M.D. 01/03/2025 Freestyle Opal 3/[place]/Glucose Monitoring Bxhahn2Pjsjng Device use with sensors to check blood sugar dx:e11.9 1units Barbi Reina M.D. 01/03/2025 Hydralazine AIF63pc Tablets take 1 tablet three times daily Barbi Reina M.D. 07/05/[address] 1 by mouth every day Rudolph Jose M.D. 03/02/2024 Isosorbide Mononitrate ER60mg Tablets ER 24HR 1 by mouth every day Rudolph Jose M.D. 03/02/2024 Lifestylecomfort Compression Stockings/Medium/10-20MM HGMisc on am and off at bedtime 2units E11.9 Rudolph Jose M.D. 03/02/2024 R60.9 Sfpasptaza04jr Tablets 1 by mouth every day Rudolph Jose M.D. 04/04/2023 Lantus Pmrxyjqp295Sllt/ML Solution Pen-Inject 40 units at bedtime 60ml Rudolph gomes M.D. 12/05/2022 Humalog Luihayt549Rzjy/ML Solution Pen-Inject inject 6-15 units subcutaneously before meals 45ml E11Sharmaine Reina M.D. 12/05/2022 Z79.4 BD Pen Needle/Short/Ultra-Fi ne/31G X 8mm31G X 8 mm Misc Use To Inject Insulin Up To Five Times Daily Alberto Quach M.D. Contour Next Blood Glucose TestStrips Us e To Test Blood Sugar Three Times Daily Alberto Quach M.D. Atorvastatin Mcuudqg36ib Tablets Take 1 Tablet By Mouth Every Day Alberto Quach M.D. Albuterol Sulfate GIG955(90B ase) mcg/Act Aerosol Inhale 2 Puffs By Mouth Twice Daily Alberto Quach M.D. Fluticasone Xufvvqhjtb38eoq/ Act Suspension Shake Liquid And Use 1 [place] In Each Nostril Twice Daily Alberto Quach M.D. 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 chron ic ischemic heart disease I10 Essential (primary) hypertension E78.00 Pure hypercholestero lemia, unspecified Assessments Date Code Description Provider 11/04/2024 E11.9 Type 2 diabetes mellitus wit hout complications KADEN Forde 11/04/2024 Z79.4 shelter (current) use of i nsulin KADEN Forde 11/04/2024 E04.2 Nontoxic multinodular goiter KADEN Forde 11/04/2024 I25.89 Asymptomatic coronary heart disease KADEN Forde 11/04/2024 I10 Essential hypertension KADEN Oropeza 11/04/2024 E78.00 Hypercholesterolemia KADEN Forde Plan of Treatment No Information Available Functional Status Description No Information Available Mental Status Description No Information Available Referrals Description No Information Available
--- OUTSIDE RECORDS SUMMARY | 2025-07-28 17:26 | XMS_ITS | Clinical Summary ---
Author Organization [facility] Address [address] [place] [phone] Phone Care Team Providers Care Framework Developer Name Role Phone Ashely Parada MD Primary Care Provider [phone] Allergies Active Allergy Reactions Criticality Noted Date Comments Apple Extract Hives 03/29/2025 Christine Rash 03/29/2025 Fruit Extracts 07/25/2021 Nutritional Supplement-Fiber 025 Other 03/29/2025 turkey [place] Rash 03/29/2025 [place] Rash 03/29/2025 Medications hydrALAZINE (APRESOLINE) 25 mg [...] SKIN EVERY 15 DAYS DIRECTED 5 Active Active Problems Problem Noted Date Diagnosed [...] if pain intensifies - Further evaluation by patient accounts specialist/podiatry if records from urgent care deem this [...] home monitoring needed - Schedule appointment with quality facilitator for further evaluation and management Type 2 diabetes mellitus wit hout complication, with long-term current use of insulin ([facility] V24, [facility] V28) 03/29/2025 Assessment & Plan (04/13/2025 12:08 PM EDT): - Diabetes well-controlled with A1c of 7.1, at goal for age and cardiac conditions - No changes to current diabetes management plan necessary Assessment & Plan (03/29/2025 4:20 PM EDT): - Blood glucose levels well-regulated on current regimen -Plan is to establish care with a new client success manager - Contact office if experiencing hypoglycemic episodes [...] intake. Encouraged to continue to follow a low-sodium diet and perform daily weights. Patient will [...] Encounters Date Type Department Care Team Description 07/13/2025 10:45 AM EDT Office Visit General Surgery - [place] [address] [place] [phone] Simba Tony, DO Neck abscess (Primary Dx) 07/11/2025 Telephone Internal Medicine - [place] [address] [place] [phone] Jaclyn Meredith RN 07/06/2025 Telephone Internal Medicine - [place] [address] [place] [phone] Ashely Parada MD 07/01/2025 2:30 PM EDT Office Visit Internal Medicine - [place] [address] [place] [phone] Ashely Parada MD Injury of toe on left foot, sequela (Primary Dx) 06/21/2025 10:15 AM EDT Consult General Surgery - [place] [address] [place] [phone] Simba Tony, DO Neck abscess 06/17/2025 11:30 AM EDT Office Visit Internal Medicine - [place] [address] [place] [address] Ashely Parada MD Neck abscess (Primary Dx); Insomnia, unspecified type 05/12/2025 12:30 PM EDT Ancillary Procedure [facility] - [address] [place] [phone] Congestive heart failure, unspecified HF chronicity, unspecified heart failure type (CMS/HCC V24, CMS/HCC V28); H/O coronary artery bypass surgery from Last 3 Months Immunizations Immunization Administration [...] complication DX:Type 2 diabetes mellitus without complication (HCC) [...] Sign Reading Time Taken Comments Blood Pressure 145/60 07/13/2025 10:38 AM EDT Pulse 63 07/13/2025 10:38 AM EDT Temperature 36.4 C (97.5 F) 07/13/2025 10:38 AM EDT Respiratory Rate - - Oxygen Saturation 95% 07/01/2025 2:16 PM EDT Inhaled Oxygen Concentration - - Weight 72.1 kg (159 lb) 07/13/2025 10:38 AM EDT Height 165.1 cm (5' 5 ) 07/01/2025 2:16 PM EDT Body Mass Index 26.46 07/01/2025 2:16 PM EDT Plan of Treatment Upcoming Encounters Date Type Department Care Team (Late st Contact Info) Description 10/18/2025 11:30 AM EST Office Visit Internal Medicine - [place] [address] [place] [phone] Ashely Parada MD [address] [place] [address] Health Maintenance Due Date Last Done Comments [...] Name Priority Date/Time Associated Diagnosis Comments EXTERNAL ULTRASOUND REPORT 07/12/2025 EXTERNAL CLINICAL LAB 06/24/2025 TRANSTHORACIC ECHOCARDIOGRAM (TTE) COMPLETE W/ CONTRAST Routine 05/12/2025 1:19 PM EDT Congestive heart failure, unspecified HF chronicity, unspecified heart failure type (CMS/HCC V24, CMS/HCC V28) H/O coronary artery bypass surgery COMPREHENSIVE METABOLIC PANEL Routine 04/04/2025 7:57 AM EDT Primary hypertension Type 2 diabetes mellitus without complication, with long-term current use of insulin ([facility] V24, [facility] V28) Hyperlipidemia, unspecified hyperlipidemia type H/O coronary artery bypass surgery Congestive heart failure ([facility] V24, [facility] V28) Mild intermittent asthma without complication HEMOGLOBIN A1C Routine 04/04/2025 7:57 AM EDT Primary hypertension Type 2 diabetes mellitus without complication, with long-term current use of insulin ([facility] V24, [facility] V28) Hyperlipidemia, unspecified hyperlipidemia type H/O coronary artery bypass surgery Congestive heart failure ([facility] V24, [facility] V28) Mild intermittent asthma without complication LIPID PANEL WITH REFLEX TO DIRECT LDL Routine 04/04/2025 7:57 AM EDT Primary hypertension Type 2 diabetes mellitus without complication, with long-term current use of insulin ([facility] V24, [facility] V28) Hyperlipidemia, unspecified hyperlipidemia type H/O coronary artery bypass surgery Congestive heart failure ([facility] V24, [facility] V28) Mild intermittent asthma without complication from Last 3 Months or Most Recently Relevant to Health Maintenance Results * External Ultrasound Report (07/12/2025) Anatomical Region Laterality Modality Ultrasound Provider [place] [facility] IMG US PROCEDURES Final Result * External clinical lab (06/24/2025) us Provider [place] [facility] LAB BLOOD ORDERABLES Fin al Result * (ABNORMAL) TRANSTHORACIC ECHOCARDIOGRAM (TTE) COMPLETE W/ CONTRAST (05/12/2025 1:19 PM EDT) Left Atrium Minor [place] 5.8 cm CV PACS Left Atrium Major [place] 6.2 cm CV PACS LA Area Sys [...] E José Miguel 0.90 m/s CV PACS SD End Max Velocity 1.0 m/s CV PACS [...] S' 10 cm/s CV PACS RA Major [place] 5.5 cm CV PACS RA Major [place] Index 3.1(A) 2.1 - 2.7 cm/m2 CV [...] was difficult due to: poor endocardial visualization. Madina Guajardo NP CV ECHO PROCEDURES [facility] al Result * Lipid panel with reflex to direct LDL (04/04/2025 7:57 AM EDT) Cholesterol 146 0 - 200 mg/dL LAB CHEMISTRY METHOD 04/04/2025 10:53 AM [facility] Triglycerides 89 0 - 150 mg/dL LAB CHEMISTRY METHOD 04/04/2025 10:53 AM [facility] HDL 78 >=40 mg/dL LAB CHEMISTRY METHOD 04/04/2025 10:53 AM [facility] LDL Calculated 50 0 - 100 mg/dL LAB CHEMISTRY METHOD 04/04/2025 10:53 AM [facility] VLDL Cholesterol Nathanael 17.8 mg/dL LAB CHEMISTRY METHOD 04/04/2025 10:53 AM [facility] Non HDL Chol. (LDL+VLDL) 68 <145 mg/dL LAB CHEMISTRY METHOD 04/04/2025 10:53 AM [facility] Chol/HDL Ratio 1.9 0.0 - 4.4 LAB CHEMISTRY METHOD 04/04/2025 10:53 AM [facility] Blood Venous blood specimen / Unknown Venipuncture / Unknown 04/04/2025 7:57 AM EDT 04/04/2025 7:57 AM EDT us Ashely Parada MD LAB BLOOD ORDERABLES Final Resul t Performing Organization Address [facility]/ZIP Co de Phone Number [facility] [address] [place] [address], [place] [phone] * (ABNORMAL) Hemoglobin A1c (04/04/2025 7:57 AM EDT) Hemoglobin A1C 7.1(H) <6.5 % LAB CHEMISTRY METHOD 04/04/2025 1:32 PM EDT [facility] Mean Bld Glu Estim. 157 mg/dL LAB CHEMISTRY METHOD 04/04/2025 1:32 PM EDT [facility] Blood Venous blood specimen / Unknown Venipuncture / Unknown 04/04/2025 7:57 AM EDT 04/04/2025 7:57 AM EDT us Ashely Parada MD LAB BLOOD ORDERABLES Final Resul t Performing Organization Address City/[facility]/ZIP Co de Phone Number [facility] [address] [place] [address], [place] [phone] * (ABNORMAL) Comprehensive metabolic panel (04/04/2025 7:57 AM EDT) Sodium 146(H) 133 - 145 mmol/L LAB CHEMISTRY METHOD 04/04/2025 10:53 AM EDT [facility] Potassium 3.9 3.5 - 5.5 mmol/L LAB CHEMISTRY METHOD 04/04/2025 10:53 AM EDT [facility] Chloride 109 96 - 110 mmol/L LAB CHEMISTRY METHOD 04/04/2025 10:53 AM EDT [facility] CO2 31 21 - 32 mmol/L LAB CHEMISTRY METHOD 04/04/2025 10:53 AM EDT [facility] Anion Gap 6 3 - 11 LAB CHEMISTRY METHOD 04/04/2025 10:53 AM [facility] Glucose 99 70 - 100 mg/dL LAB CHEMISTRY METHOD 04/04/2025 10:53 AM [facility] BUN 17 5 - 25 mg/dL LAB CHEMISTRY METHOD 04/04/2025 10:53 AM [facility] Creatinine 0.68(L) 0.70 - 1.30 mg/dL LAB CHEMISTRY METHOD 04/04/2025 10:53 AM [facility] eGFR 93 >=60 mL/min/1. 73m2 LAB CHEMISTRY METHOD 04/04/2025 10:53 AM [facility] Comment:Calculation based on the Chronic Kidney Disease Epidemiology Collaboration (CKD-EPI) equation refit without adjustment for race. BUN/Creatinine Ratio 25.0 LAB CHEMISTRY METHOD 04/04/2025 10:53 AM [facility] Calcium 9.0 8.5 - 10.5 mg/dL LAB CHEMISTRY METHOD 04/04/2025 10:53 AM [facility] AST (SGOT) 18 10 - 42 unit/L LAB CHEMISTRY METHOD 04/04/2025 10:53 AM [facility] ALT (SGPT) 31 10 - 60 unit/L LAB CHEMISTRY METHOD 04/04/2025 10:53 AM [facility] Alkaline Phosphatase 74 42 - 121 unit/L LAB CHEMISTRY METHOD 04/04/2025 10:53 AM [facility] Total Protein 6.6 6.0 - 8.0 g/dL LAB CHEMISTRY METHOD 04/04/2025 10:53 AM [facility] Albumin 3.9 3.2 - 5.0 g/dL LAB CHEMISTRY METHOD 04/04/2025 10:53 AM [facility] Total Bilirubin 0.6 0.0 - 1.4 mg/dL LAB CHEMISTRY METHOD 04/04/2025 10:53 AM EDT [facility] Blood Venous blood specimen / Unknown Venipuncture / Unknown 04/04/2025 7:57 AM EDT 04/04/2025 7:57 AM EDT Ashely Parada MD LAB BLOOD ORDERABLES Final Resul t [facility] ([facility] [address] [place] [address], from Last 3 Months or Most Recently Relevant to Health Maintenance Insurance [employer] [place] [address] Care Teams Framework Developer Relationship Specialty Start Date End Date Ashely Parada MD [address] [place] [address] PCP - General Family Medicine 03/29/25
--- OUTSIDE RECORDS SUMMARY | 2025-07-28 17:26 | XMS_ITS | Clinical Summary ---
Author Organization [address] [facility] Address [address] [place] [address] Care Team Providers Care Bark Grinder Name Role Phone Alberto Quach MD Primary Care Provider [phone] Allergies No known active allergies Medications amlodipine-ator [...] 2018 Influenza vaccine 05/13/2025 Covid-19 vaccine series (1 - season) 2025 Colon cancer screening, Colonoscopy Discontinued Meningococcal B Vaccine Aged Out No l onger eligible based on patient's age to complete this topic Meningococcal Vaccine Aged Out No jose g jayleen eligible based on patient's age to complete this topic Medical Devices Implanted Type Area Recreational Programs Director Device Identifier Shelf Expiration Date Model / Serial / Lot Lense [id number] 20.0 - [id number] Implanted:Qty: 1 on 07/09/2018 by Sridhar Phillips MD at [address] Other-imp lant Left: Eye [facility] ([employer]) 11/12/2022 [id number].200 / [id number] / Insurance MEDICARE [facility] MEDICARE [facility] MEDICARE [facility] Care Teams Bark Grinder Relationship Specialty Start Date End Date Alberto Quach MD PCP - General Internal Medicine 07/09/18
== END 2025-07-28 14:45 | disposition home or self-care (01) ==
LOC: HO.ENCR 13:41
PROVIDERS: PCP Student in an Organized Health Care Education/Training Program; Visit Provider Student in an Organized Health Care Education/Training Program
DX: E11.59 Type 2 diabetes mellitus with other circulatory complications (principal); Z79.4 Long term (current) use of insulin; E04.2 Nontoxic multinodular goiter
CPT/HCPCS: 95251; 99214

== ENCOUNTER → 2025-07-28 13:41 | Outpatient (BNVA) | payer MEDICARE, SELFPAY | PROVIDERS: PCP Student in an Organized Health Care Education/Training Program; Visit Provider Student in an Organized Health Care Education/Training Program | DX: E11.59 Type 2 diabetes mellitus with other circulatory complications (principal); E04.2 Nontoxic multinodular goiter; Z79.4 Long term (current) use of insulin | CPT/HCPCS: 82947; 99212 ==